=== PATIENT | female | born 1960 | race Caucasian/White ===

== ENCOUNTER 2021-02-16 05:42 | Inpatient (IN) | payer MEDICARE, MEDICAID ==
[~2021-02-16 05:42] MED LIST: Lactated Ringers 1,000 ML IV ONE
[2021-02-16] MEDS ORDERED: Cyanocobalamin (Vitamin B12) 1,000 MCG/ML SDV IM ONE (06:30)
[2021-02-16] MEDS ORDERED: MVI, Adult with Vitamin K 10 ML, Thiamine 200 MG, Chromium/Copper/Mang/Selen/Zn 1 ML in... IV ONE ×4 (07:15)
[2021-02-16] MEDS ORDERED: Glycopyrrolate 0.2 MG/ML 2 ML SDV IVPUSH ONE (07:15)
[2021-02-16] MEDS ORDERED: Potassium Chloride 20 MEQ in Premix Bag 1 BAG IV ONE (07:30)
[2021-02-16] MEDS ORDERED: Propofol 200 MG/20 ML SDV ONE (09:44)
[2021-02-16] MEDS ORDERED: fentaNYL 100 MCG/2 ML SDV ONE (09:44)
[2021-02-16] MEDS ORDERED: Sodium Chloride 0.9% 500 ML ONE (09:48)
[2021-02-16] MEDS ORDERED: Metoclopramide 10 MG/2 ML SDV IVPUSH PRN (11:24)
[2021-02-16] MEDS: Potassium Phos in 0.9 % NaCl 15 MMOL in Premix Bag 1 BAG IV SCH ×6 (13:07→20:19)
[2021-02-16] MEDS: Ondansetron 4 MG/2 ML SDV IVPUSH PRN (17:31)
[2021-02-16] MEDS: traMADol 50 MG Tab PO PRN (20:27)
[2021-02-16] MEDS: Temazepam 15 MG Cap PO PRN (20:53)
[2021-02-16] MEDS ORDERED: Atenolol 25 MG Tab PO SCH (21:00)
[2021-02-16] MEDS ORDERED: Sodium Chloride 0.9% 500 ML IV ONE (22:15)
[2021-02-16] MEDS: Potassium Chloride 20 MEQ in Premix Bag 1 BAG IV SCH (23:21)
[2021-02-17] MEDS: Potassium Chloride 20 MEQ in Premix Bag 1 BAG IV SCH (01:33)
[2021-02-17] MEDS: Temazepam 15 MG Cap PO PRN ×2 (01:33→21:11)
[2021-02-17] MEDS: Dextrose 5%-Lactated Ringers 1,000 ML IV SCH ×2 (02:48→10:17)
[2021-02-17] MEDS ORDERED: Atenolol 25 MG Tab PO ONE (06:30)
[2021-02-17] MEDS ORDERED: Bupivacaine 0.5% 50 ML MDV ONE (06:44)
[2021-02-17] MEDS ORDERED: Lidocaine 1% with EPINEPHrine 1:100,000 50 ML MDV ONE (06:44)
[2021-02-17] MEDS ORDERED: Propofol 200 MG/20 ML SDV ONE (07:13)
[2021-02-17] MEDS ORDERED: Midazolam 1 MG/ML 2 ML SDV ONE (07:13)
[2021-02-17] MEDS ORDERED: fentaNYL 100 MCG/2 ML SDV ONE (07:13)
[2021-02-17] MEDS ORDERED: Lidocaine 1% 2 ML ONE (07:38)
[2021-02-17] MEDS ORDERED: ceFAZolin 2 GM in Premix Bag 1 BAG IV ONE (08:00)
[2021-02-17] MEDS ORDERED: Furosemide 20 MG/2 ML VIAL IV ONE (10:00)
[2021-02-17] MEDS ORDERED: MANGANESE IV SCH ×2 (12:00)
[2021-02-17] MEDS ORDERED: [UNRECOGNIZED DRUG - OTHER] IV SCH ×2 (12:00)
[2021-02-17] MEDS ORDERED: ZINC IV SCH ×2 (12:00)
[2021-02-17] MEDS ORDERED: LYTES IV SCH ×2 (12:00)
[2021-02-17] MEDS ORDERED: COPPER IV SCH ×2 (12:00)
[2021-02-17] MEDS ORDERED: CALCIUM IV SCH ×2 (12:00)
[2021-02-17] MEDS ORDERED: Dextrose 5%-Lactated Ringers 1,000 ML IV SCH (12:00)
[2021-02-17] MEDS: LYTES IV SCH ×6 (12:20→23:16)
[2021-02-17] MEDS: CALCIUM IV SCH ×6 (12:20→23:16)
[2021-02-17] MEDS: ZINC IV SCH ×6 (12:20→23:16)
[2021-02-17] MEDS: MANGANESE IV SCH ×6 (12:20→23:16)
[2021-02-17] MEDS: [UNRECOGNIZED DRUG - OTHER] IV SCH ×6 (12:20→23:16)
[2021-02-17] MEDS: COPPER IV SCH ×6 (12:20→23:16)
[2021-02-17] MEDS: SELENIUM IV SCH ×6 (12:20→23:16)
[2021-02-17] MEDS: MVI IV SCH ×6 (12:20→23:16)
[2021-02-17] MEDS: Acetaminophen 325 MG Tab PO PRN (15:15)
[2021-02-17] MEDS: Fat Emulsion 100 ML IV SCH (15:48)
[2021-02-17] MEDS: Atenolol 25 MG Tab PO SCH (21:10)
[2021-02-17] MEDS: traMADol 50 MG Tab PO PRN (21:11)
[2021-02-18] MEDS: traMADol 50 MG Tab PO PRN ×4 (03:07→21:00)
[2021-02-18] MEDS: MANGANESE IV SCH ×6 (08:35→18:40)
[2021-02-18] MEDS: [UNRECOGNIZED DRUG - OTHER] IV SCH ×6 (08:35→18:40)
[2021-02-18] MEDS: LYTES IV SCH ×6 (08:35→18:40)
[2021-02-18] MEDS: Furosemide 20 MG/2 ML VIAL IV SCH ×2 (08:35→20:50)
[2021-02-18] MEDS: ZINC IV SCH ×6 (08:35→18:40)
[2021-02-18] MEDS: SELENIUM IV SCH ×6 (08:35→18:40)
[2021-02-18] MEDS: COPPER IV SCH ×6 (08:35→18:40)
[2021-02-18] MEDS: MVI IV SCH ×6 (08:35→18:40)
[2021-02-18] MEDS: CALCIUM IV SCH ×6 (08:35→18:40)
[2021-02-18] MEDS: Magnesium Sulfate/Water 2 GM in Premix Bag 1 BAG IV SCH ×3 (08:59→20:57)
[2021-02-18] MEDS ORDERED: Furosemide 20 MG/2 ML VIAL IV SCH (09:00)
[2021-02-18] MEDS: Atenolol 25 MG Tab PO SCH ×2 (09:01→20:57)
[2021-02-18] MEDS ORDERED: Potassium Phosphates 25 MMOLE in Sodium Chloride 0.9% 100 ML IV ONE ×4 (11:00)
--- NOTE | 2021-02-18 14:55 | PN ---
DATE OF SERVICE: 02/17/2021 The patient has been afebrile with stable vital signs. She had a small amount of oral intake overnight without difficulty. Her labs are showing correction of the potassium up to 3.5, magnesium is somewhat low, so we supplemented. Otherwise, she will be getting a Puckett catheter placed today and we will begin some TPN. We will proceed with some nutritional replenishment through the weekend, and on Friday, Friday being a holiday, we will proceed with exploratory laparotomy try to sort out what might be going on in terms of her chronic nausea and vomiting and diarrhea and replace a gastrostomy tube at that point as well. The Puckett catheter will be placed later this morning. Juve Alvarez MD /[id number]
[2021-02-18] MEDS: Fat Emulsion 100 ML IV SCH (16:42)
[2021-02-18] MEDS: Temazepam 15 MG Cap PO PRN (21:00)
[2021-02-19] MEDS: Acetaminophen 325 MG Tab PO PRN ×2 (01:46→13:46)
[2021-02-19] MEDS: Magnesium Sulfate/Water 2 GM in Premix Bag 1 BAG IV SCH ×4 (02:41→20:43)
[2021-02-19] MEDS: MVI IV SCH ×3 (04:24)
[2021-02-19] MEDS: ZINC IV SCH ×3 (04:24)
[2021-02-19] MEDS: LYTES IV SCH ×3 (04:24)
[2021-02-19] MEDS: MANGANESE IV SCH ×3 (04:24)
[2021-02-19] MEDS: COPPER IV SCH ×3 (04:24)
[2021-02-19] MEDS: SELENIUM IV SCH ×3 (04:24)
[2021-02-19] MEDS: [UNRECOGNIZED DRUG - OTHER] IV SCH ×3 (04:24)
[2021-02-19] MEDS: CALCIUM IV SCH ×3 (04:24)
[2021-02-19] MEDS ORDERED: Potassium Phosphates 25 MMOLE in Sodium Chloride 0.9% 100 ML IV ONE (09:00)
[2021-02-19] MEDS: Furosemide 20 MG/2 ML VIAL IV SCH ×2 (09:06→20:43)
[2021-02-19] MEDS: Atenolol 25 MG Tab PO SCH ×2 (09:12→20:42)
[2021-02-19] MEDS: traMADol 50 MG Tab PO PRN ×2 (09:20→20:41)
--- NOTE | 2021-02-19 13:22 | PN ---
DATE OF SERVICE: 02/19/2021 The patient has been afebrile with stable vital signs. She complains of some heartburn, but denies any nausea, or vomiting. She had almost 7 L of urine output yesterday with net diuresis of 4878 recorded. Her oral intake is seemingly going okay, but she does complain of some heartburn. Labs show involving contraction alkalosis related to her diuresis, and we will adjust her TPN accordingly. Otherwise, the plan will be proceed with exploratory laparotomy tomorrow to try to identify any small bowel adhesions or partial obstruction sites, adjust dose accordingly, and then place a gastrostomy tube as a backup for nutritional status. The potential risks of the procedure were reviewed, and the patient wishes to proceed. Juve Alvarez MD /[id number]
--- NOTE | 2021-02-19 13:31 | PN ---
DATE OF SERVICE: 02/18/2021 The patient has been afebrile with stable vital signs. Oral intake has been reasonable without any nausea or vomiting other than she is complaining of more heartburn today after eating some yesterday. However, the patient tolerated TPN. She did have a net diuresis of around 1280 mL yesterday with the diuresis, but with that, her BNP is still somewhat higher. We will give b.i.d. today and recheck some labs in the morning. In anticipation of some loss of potassium and phosphate, we will give her some K-Phos IV today as well. Otherwise, we will plan to proceed with surgical intervention on Friday. Juve Alvarez MD /[id number]
[2021-02-19] MEDS: 1: Amino Acids 5%/Dextrose 15% 1,000 ML with MVI, Adult with Vitamin K 10 ML, Zinc/Copp IV SCH ×3 (14:22)
[2021-02-19] MEDS ORDERED: Potassium Phosphates 20 MMOLE in Sodium Chloride 0.9% 100 ML IV ONE (15:00)
[2021-02-19] MEDS: Fat Emulsion 100 ML IV SCH (16:19)
[2021-02-19] MEDS: Temazepam 15 MG Cap PO PRN (20:41)
[2021-02-20] MEDS: 1: Amino Acids 5%/Dextrose 15% 1,000 ML with MVI, Adult with Vitamin K 10 ML, Zinc/Copp IV SCH ×3 (00:27)
[2021-02-20] MEDS: Magnesium Sulfate/Water 2 GM in Premix Bag 1 BAG IV SCH (03:05)
[2021-02-20] MEDS ORDERED: Bupivacaine 0.5% 50 ML MDV ONE (06:50)
[2021-02-20] MEDS ORDERED: Lidocaine 1% with EPINEPHrine 1:100,000 50 ML MDV ONE (06:50)
[2021-02-20] MEDS ORDERED: Meropenem 500 MG SDV ONE (06:50)
[2021-02-20] MEDS ORDERED: Glycopyrrolate 0.2 MG/ML 5 ML MDV ONE (06:55)
[2021-02-20] MEDS ORDERED: Rocuronium 50 MG/5 ML Vial ONE (06:55)
[2021-02-20] MEDS ORDERED: Propofol 200 MG/20 ML SDV ONE (06:55)
[2021-02-20] MEDS ORDERED: Succinylcholine 200 MG/10 ML MDV ONE (06:55)
[2021-02-20] MEDS ORDERED: Dexamethasone 4 MG/ML SDV ONE (06:55)
[2021-02-20] MEDS ORDERED: Neostigmine Methylsulfate 1 MG/ML 5 ML Syringe ONE (06:55)
[2021-02-20] MEDS ORDERED: Ondansetron 4 MG/2 ML SDV ONE (06:55)
[2021-02-20] MEDS ORDERED: fentaNYL 250 MCG/5 ML SDV ONE ×2 (06:57→09:38)
[2021-02-20] MEDS ORDERED: Atenolol 25 MG Tab PO ONE (07:00)
[2021-02-20] MEDS: Furosemide 20 MG/2 ML VIAL IV SCH (08:18)
[2021-02-20] MEDS ORDERED: Ketamine 500 MG/5 ML MDV IV SCH (09:00)
[2021-02-20] MEDS ORDERED: Magnesium Sulfate 2.7 GM in Sodium Chloride 0.9% 100 ML IV SCH (09:00)
[2021-02-20] MEDS ORDERED: cefOXitin 2 GM in Sodium Chloride 0.9% 50 ML IV ONE (09:00)
[2021-02-20] MEDS ORDERED: Ketamine 50 MG in Sodium Chloride 0.9% 49.5 ML IV SCH (09:00)
[2021-02-20] MEDS ORDERED: Magnesium Sulfate 2.8 GM in Sodium Chloride 0.9% 250 ML IV ONE (09:30)
[2021-02-20] MEDS ORDERED: Lidocaine 1% with EPINEPHrine 1:100,000 50 ML MDV INJECT ONE (09:40)
[2021-02-20] MEDS ORDERED: Bupivacaine 0.5% 50 ML MDV INJECT ONE (09:40)
[2021-02-20] MEDS ORDERED: Meropenem 500 MG SDV IRR ONE (09:45)
[2021-02-20] MEDS ORDERED: hydrOXYzine HCL 100 MG/2 ML SDV IM ONE (10:45)
[2021-02-20] MEDS ORDERED: fentaNYL 100 MCG/2 ML SDV IVPUSH ONE (10:46)
[2021-02-20] MEDS ORDERED: Naloxone 0.4 MG/ML SDV IVPUSH PRN (11:04)
[2021-02-20] MEDS ORDERED: diphenhydrAMINE 50 MG/ML SDV IVPUSH PRN ×2 (11:04→13:00)
[2021-02-20] MEDS ORDERED: diphenhydrAMINE 25 MG Cap PO PRN (11:04)
[2021-02-20] MEDS ORDERED: Ondansetron 4 MG/2 ML SDV IVPUSH PRN (11:04)
[2021-02-20] MEDS ORDERED: Naloxone 0.4 MG/ML SDV IV PRN (12:00)
[2021-02-20] MEDS: HYDROmorphone/Normal Saline 15 MG/30 ML PCA IV PRN (12:19)
[2021-02-20] MEDS ORDERED: [UNRECOGNIZED DRUG - OTHER] IV ONE ×3 (12:30)
[2021-02-20] MEDS ORDERED: MVI IV ONE ×3 (12:30)
[2021-02-20] MEDS ORDERED: 1: Amino Acids 5%/Dextrose 15% 1,000 ML with MVI, Adult with Vitamin K 10 ML, Zinc/Copp IV SCH ×3 (12:30)
[2021-02-20] MEDS ORDERED: ZINC IV ONE ×3 (12:30)
[2021-02-20] MEDS ORDERED: VITAMIN K IV ONE ×3 (12:30)
[2021-02-20] MEDS ORDERED: COPPER IV ONE ×3 (12:30)
[2021-02-20] MEDS ORDERED: MANGANESE IV ONE ×3 (12:30)
[2021-02-20] MEDS ORDERED: SELENIUM IV ONE ×3 (12:30)
[2021-02-20] MEDS ORDERED: Calcium Gluconate 10% 1 GM/10 ML SDV IVPUSH PRN (13:00)
[2021-02-20] MEDS ORDERED: Acetaminophen 500 MG Tab PO PRN (13:00)
[2021-02-20] MEDS ORDERED: Metoclopramide 10 MG/2 ML SDV IVPUSH PRN (13:00)
[2021-02-20] MEDS ORDERED: Albuterol/Ipratropium 3.0-0.5 MG/3 ML Neb Soln INH PRN (13:00)
[2021-02-20] MEDS ORDERED: hydrOXYzine HCL 100 MG/2 ML SDV IM PRN (13:00)
[2021-02-20] MEDS ORDERED: Labetalol 20 MG/4 ML Syringe IVPUSH PRN (13:00)
[2021-02-20] MEDS: Dextrose 5%-Lactated Ringers 1,000 ML IV SCH (13:24)
[2021-02-20] MEDS: cefOXitin 2 GM in Sodium Chloride 0.9% 50 ML IV SCH ×2 (13:28→20:16)
[2021-02-20] MEDS: Pantoprazole 40 MG Vial IVPUSH SCH (13:34)
[2021-02-20] MEDS: Acetaminophen 500 MG Tab PO SCH ×2 (13:36→22:47)
--- NOTE | 2021-02-20 18:31 | PCM.EKG ---
#1 Interpretation EKG Date: 02/19/21 Time: 12:12 Rhythm: NSR Rate (Beats/Min): 68 Enochs: Normal P-Wave: Present QRS: Normal ST-T: Normal QT: Normal WA/PQ Interval: normal Comparison: No Change (compared to 08/02/13)
[2021-02-20] MEDS: Atenolol 25 MG Tab PO SCH (20:15)
[2021-02-21] MEDS ORDERED: Iopamidol 612 MG/ML 50 ML SDV PO STA (02:04)
[2021-02-21] MEDS: cefOXitin 2 GM in Sodium Chloride 0.9% 50 ML IV SCH ×3 (02:07→14:38)
[2021-02-21] MEDS: Acetaminophen 500 MG Tab PO SCH ×3 (05:33→21:29)
[2021-02-21] MEDS: Docusate Sodium 100 MG Cap PO SCH ×3 (08:32→21:26)
[2021-02-21] MEDS: Bisacodyl 5 MG Tab PO SCH ×2 (08:32→21:00)
[2021-02-21] MEDS: Atenolol 25 MG Tab PO SCH ×2 (08:33→21:27)
[2021-02-21] MEDS ORDERED: 1: Amino Acids 5%/Dextrose 15% 1,000 ML with MVI, Adult with Vitamin K 10 ML, Zinc/Copp IV SCH ×6 (08:37→09:00)
[2021-02-21] MEDS ORDERED: Furosemide 20 MG/2 ML VIAL IVPUSH ONE (09:00)
[2021-02-21] MEDS ORDERED: Loperamide 1 MG/7.5 ML 7.5 ML UD Cup FTUBE PRN (09:21)
--- NOTE | 2021-02-21 10:05 | CRLCR ---
For Patients: As a result of the Century Cures Act, medical imaging exams and procedure reports are released immediately into your electronic medical record. You may view this report before your referring provider. If you have questions, please contact your health care provider. INDICATION: Perioperative surgery. Assess for G-tube placement. Impression : Three images. Initial image shows no contrast and nonobstructive bowel gas pattern. Subsequent images show contrast in the distal esophagus and Marshal loop of the bypass. No dilatation. Final image shows some disruption of the contrast column with some contrast still only esophagus and grouped and contrast in nondilated jejunum in the left lower quadrant. Skin gely in the midline. Presumed vascular calcifications right upper quadrant. Dictated by Kwaku Rivera MD @ 02/21/2021 10:02:59 AM (Electronically Signed)
[2021-02-21] MEDS: Vitamin A 10,000 Unit Cap PO SCH ×2 (12:23→16:21)
[2021-02-21] MEDS: HYDROmorphone/Normal Saline 15 MG/30 ML PCA IV PRN (14:32)
[2021-02-21] MEDS: Pantoprazole 40 MG Vial IVPUSH SCH (14:38)
[2021-02-21] MEDS: Dextrose 5%-Lactated Ringers 1,000 ML IV SCH (14:44)
--- NOTE | 2021-02-21 15:05 | PN ---
DATE OF SERVICE: 02/20/2021 The patient is having moderate amount of oral intake, but around 1300 mL a day, and she says with it she did develop some nausea and crampy abdominal pain. Had some loose bowel movements. Given this, we will proceed with surgery as planned with examination of the small bowel and probable revision of this to a more proximal jejunojejunostomy to minimize problems with diarrhea and revise any areas that need revision and/or lysis of adhesions probably along with placement of the gastrostomy tube. Juve Alvarez MD /[id number]
--- NOTE | 2021-02-21 15:05 | PN ---
DATE OF SERVICE: 02/21/2021 The patient has been afebrile with stable vital signs. Upper GI x-ray looks good and we will begin a step-2 diet today. Otherwise, we will also start the tube feeding today. We will initially start these with a continuous regimen per dietary recommendation and then in a day or 2 try to switch over to more of a bolus regimen. Actually, I think she will probably need something like 2 or 3 cans of tube feeding daily as a bolus in addition to her oral intake she will be taking in. Her magnesium is quite low today. We will supplement that. Apparently, oral magnesium in the past caused some nausea and vomiting, but she has tolerated that during this hospitalization without difficulties thus far. Otherwise, her vitamin A levels are quite low and we will ask pharmacy to see what the options for vitamin A replacement are, if there are injections available we will certainly begin those, otherwise,we will continue high-dose oral regimen. We will back down the TPN rate 40 mL now given the oral intake as well as the tube feedings and give her 1 dose bump up a little bit overnight. Juve Alvarez MD /[id number]
[2021-02-21] MEDS: Temazepam 15 MG Cap PO PRN (21:26)
[2021-02-22] MEDS: Acetaminophen 500 MG Tab PO SCH ×4 (05:18→21:42)
[2021-02-22] MEDS: Vitamin A 10,000 Unit Cap PO SCH ×3 (07:58→17:11)
[2021-02-22] MEDS ORDERED: Magnesium Hydroxide 400 MG/5 ML Susp 30 ML Cup PO ONE (08:00)
[2021-02-22] MEDS ORDERED: Furosemide 20 MG/2 ML VIAL IV ONE (08:00)
--- NOTE | 2021-02-22 08:42 | PN ---
DATE OF SERVICE: 02/22/2021 The patient is status post a Puckett catheter insertion on 02/17/2021 and then subsequently on 02/20 exploratory laparotomy with revision of jejunojejunostomy, component of Marshal-en-Y gastric bypass, excision of a peritoneal implant, repair of incarcerated incisional hernia, placement of tube gastrostomy, and placement of Interceed mesh. Oral intake thus far has been running around a liter a day and she has been receiving tube feedings, especially 2 mL an hour. Has also been receiving TPN, which we will stop today. The plan is to get the patient started for nighttime tube feeding regimen to supplement oral intake. This will be required as the patient is unable to maintain adequate oral intake and has had significant amount of malabsorption related to the gastric bypass and the tube feeding as anticipated will be required for an excess of 90 days. Physical Therapy will be seeing the patient daily. Among her labs, her vitamin A level was extremely low rate around 5, and she is being supplemented with 100,000 units of oral vitamin A daily, and she will probably need to go home on that regimen for a period of time. The tentative plan is to discharge home on Friday with mobile home installer with the tube feedings. This was depending on the adequate performance status. Over the weekend, she has had some tendency to have a little bit of fluid overload picture and has been receiving daily Lasix. We will do that again today and check some labs and BMP again tomorrow. Otherwise, continue bowel stimulation. We will give her some additional milk of magnesia today and a step 3 gastric bypass diet. Juve Alvarez MD /[id number]
[2021-02-22] MEDS ORDERED: Cyanocobalamin (Vitamin B12) 1,000 MCG/ML SDV IM ONE (09:00)
[2021-02-22] MEDS: Docusate Sodium 100 MG Cap PO SCH ×2 (09:02→20:12)
[2021-02-22] MEDS: Bisacodyl 5 MG Tab PO SCH ×2 (09:02→20:12)
[2021-02-22] MEDS: Atenolol 25 MG Tab PO SCH ×2 (09:03→20:12)
[2021-02-22] MEDS: Cyclobenzaprine 10 MG Tab PO PRN (12:51)
[2021-02-22] MEDS: HYDROmorphone/Normal Saline 15 MG/30 ML PCA IV PRN (15:11)
[2021-02-22] MEDS: Pantoprazole 40 MG Delayed-Release Granules 1 Packet PO SCH (16:55)
[2021-02-22] MEDS: Temazepam 15 MG Cap PO PRN (20:12)
[2021-02-23] MEDS: Acetaminophen 500 MG Tab PO SCH ×3 (06:02→22:05)
[2021-02-23] MEDS: Dextrose 5%-Lactated Ringers 1,000 ML IV SCH (07:31)
[2021-02-23] MEDS: Docusate Sodium 100 MG Cap PO SCH ×2 (09:54→21:57)
[2021-02-23] MEDS: Atenolol 25 MG Tab PO SCH ×2 (09:55→22:05)
[2021-02-23] MEDS: Furosemide 20 MG/2 ML VIAL IVPUSH SCH ×2 (09:56→22:04)
[2021-02-23] MEDS: Vitamin A 10,000 Unit Cap PO SCH ×3 (09:56→17:46)
[2021-02-23] MEDS: HYDROmorphone/Normal Saline 15 MG/30 ML PCA IV PRN (11:24)
[2021-02-23] MEDS: Ondansetron 4 MG/2 ML SDV IVPUSH PRN ×2 (12:46→20:06)
--- NOTE | 2021-02-23 13:19 | PN ---
DATE OF SERVICE: 02/23/2021 SUBJECTIVE: Carissa tolerated her G-tube feedings last night and she did get up to the 99 mL per hour. It currently is off right now and she will be starting her nighttime 12-hour feeding. Her BNP did increase to 2470. She has been voiding without difficulty. She did have 2 bowel movements. Oral intake was 1015, output 1100. Labs today; potassium 4.9, and BNP was 2470. Remainder of review of systems negative for any pertinent positives and negatives. OBJECTIVE: GENERAL: Carissa King is a pleasant 60-year-old female. She is alert and orientated. VITAL SIGNS: TPR is 96.9, 66, 16. Blood pressure 120/61. HEENT: Negative. NECK: Supple. HEART: Regular rate and rhythm. LUNGS: Clear. ABDOMEN: Dressing dry and intact. Abdominal binder is on. EXTREMITIES: Without peripheral edema. ASSESSMENT: 1. Exploratory laparotomy with: a. Revision of the jejunojejunostomy component of the Marshal-en-Y gastric bypass. b. Excision of peritoneal implant. c. Repair of incarcerated incisional hernia. d. Placement of tube gastrostomy. e. Placement of Interceed mesh. POSTOP DIAGNOSES: 1. Partial small bowel obstruction at the jejunojejunostomy. 2. Peritoneal implants, small bowel mesenteric. 3. Incarcerated incisional hernia. 4. Malnutrition. Date of procedure: 02/20/2021. Surgeon: Juve Alvarez MD. PLAN: 1. Lasix 20 mg IV b.i.d. 2. Discontinue Dulcolax tabs. 3. May shower. 4. Start gastrostomy tube feedings per order, 12 hours, starting tonight. 5. Check CBC, CMP, mag, phos in a.m. 6. Continue use of incentive spirometer. 7. We will evaluate p.r.n. or in a.m. Deborah Osorio PA-C /[id number]
[2021-02-23] MEDS: Pantoprazole 40 MG Delayed-Release Granules 1 Packet PO SCH (17:45)
[2021-02-23] MEDS: Cyclobenzaprine 10 MG Tab PO PRN (20:06)
[2021-02-24] MEDS: Ondansetron 4 MG/2 ML SDV IVPUSH PRN (00:06)
[2021-02-24] MEDS: Temazepam 15 MG Cap PO PRN (00:06)
[2021-02-24] MEDS ORDERED: Scopolamine 1.5 MG Transdermal Patch TRDERM ONE (01:42)
[2021-02-24] MEDS: LORazepam 2 MG/ML SDV IVPUSH PRN ×2 (01:57→04:12)
[2021-02-24] MEDS ORDERED: Sodium Chloride 0.9% 75 ML IV ONE (04:23)
[2021-02-24] MEDS ORDERED: Sodium Chloride 0.9% 10 ML Syringe FLUSH PRN (04:23)
[2021-02-24] MEDS ORDERED: Iopamidol 612 MG/ML 100 ML Bottle IV PRN (04:23)
[2021-02-24] MEDS ORDERED: Iopamidol 612 MG/ML 100 ML Bottle IV ONE (05:00)
[2021-02-24] MEDS ORDERED: Lactated Ringers 500 ML IV SCH (05:15)
[2021-02-24] MEDS ORDERED: Piperacillin/Tazobactam 4.5 GM in Sodium Chloride 0.9% 100 ML IV ONE (05:18)
[2021-02-24] MEDS ORDERED: Piperacillin/Tazobactam 4.5 GM Vial ONE (05:18)
[2021-02-24] MEDS ORDERED: LORazepam 2 MG/ML SDV IVPUSH STA (05:27)
[2021-02-24] MEDS ORDERED: Glycopyrrolate 0.2 MG/ML 5 ML MDV ONE (05:37)
[2021-02-24] MEDS ORDERED: Rocuronium 50 MG/5 ML Vial ONE (05:37)
[2021-02-24] MEDS ORDERED: Neostigmine Methylsulfate 1 MG/ML 5 ML Syringe ONE (05:37)
[2021-02-24] MEDS ORDERED: Propofol 200 MG/20 ML SDV ONE (05:37)
[2021-02-24] MEDS ORDERED: Succinylcholine 200 MG/10 ML MDV ONE (05:37)
[2021-02-24] MEDS ORDERED: fentaNYL 250 MCG/5 ML SDV ONE (05:37)
[2021-02-24] MEDS ORDERED: Dexamethasone 4 MG/ML SDV ONE (05:37)
[2021-02-24] MEDS ORDERED: Ondansetron 4 MG/2 ML SDV ONE (05:37)
[2021-02-24] MEDS ORDERED: Sodium Chloride 0.9% 20 ML ONE (05:40)
[2021-02-24] MEDS ORDERED: ePHEDrine 50 MG/ML SDV ONE ×2 (05:40→06:54)
[2021-02-24] MEDS ORDERED: Phenylephrine 1% 10 MG/ML SDV ONE ×2 (05:40→07:10)
[2021-02-24] MEDS ORDERED: Bupivacaine 0.5%/EPINEPHrine 1:200,000 50 ML MDV ONE (05:42)
--- NOTE | 2021-02-24 06:00 | CRLCT ---
For Patients: As a result of the 21st Century Cures Act, medical imaging exams and procedure reports are released immediately into your electronic medical record. You may view this report before your referring provider. If you have questions, please contact your health care provider. INDICATION: Abdominal pain with nausea and vomiting. COMPARISON: Three views of the abdomen with administration oral contrast from 02/21/2021. TECHNIQUE: CT examination of the chest, abdomen, and pelvis was performed without contrast enhancement using 3 mm thick axial sections from above the apices of the lungs through the symphysis pubis. Oral contrast was not administered. Please note that all CT scans at this facility use dose modulation, iterative reconstruction, and/or weight-based dosing when appropriate to reduce radiation dose to as low as reasonably achievable. FINDINGS: : In the chest, there is moderate linear atelectasis in the posterior left lower lobe adjacent to mild elevation of the left hemidiaphragm from eventration. Moderate linear atelectasis is seen in the posterior right lung base adjacent to the hemidiaphragm. There is a left subclavian central line with its tip in the superior vena cava at the cavoatrial junction. There is no sign of mediastinal or hilar mass or adenopathy. Sensitivity is limited by the absence of contrast enhancement. There is minimal LAD coronary calcification. The heart is otherwise normal in appearance. There is age appropriate appearance of the thoracic aorta and ascending great vessels. There is no sign of supraclavicular or axillary mass or adenopathy. There is a 1.6 centimeter low-density region in the interpolar right lobe of the thyroid, a possible cyst or mass. This can be further evaluated with ultrasound on a nonemergent basis. The left lobe of the thyroid is small but is otherwise normal in appearance. There is massive free intra-abdominal air, new compared to the previous abdominal films. During the interval, a gastrostomy tube has been placed with its tip in satisfactory position in the body of the stomach. It is possible that the massive amounts of free air is the result of G-tube placement, but I am more concerned for bowel perforation. There is a mild amount of free fluid in the all gutters, right greater than left. There is new prominent distention of the small bowel with moderate distention of the colon extending to the descending colon. The findings suggest an ileus. There is residual oral contrast in the colon extending from the cecum through the rectum. There is prominent pneumatosis of the proximal small bowel. In the abdomen, the unenhanced liver has prominent portal venous air, with a large amount of air seen in the main portal vein and small amounts of air seen in the splenic vein. The spleen, pancreas, and right adrenal are normal in appearance. There is a nodule with fatty density arising from the left adrenal gland measuring 3.6 x 3.8 centimeters, findings branch customer service representative of an adrenal myelolipoma. A 2nd left adrenal nodule is seen with intermediate density medially but with fatty density laterally, consistent with an additional myelolipoma, measuring 2.8 x 3.4 centimeters. The right kidney is absent with surgical clips in the renal fossa from nephrectomy. The left kidney is normal in appearance. Clips are seen in the gall bladder fossa from cholecystectomy. There is no sign of biliary ductal dilatation. The abdominal aorta is normal in caliber with no sign of dilatation. There is no sign of retroperitoneal mass or adenopathy. There are changes of Marshal-en-Y anastomosis with moderate distention of the gastric body and fundus with gas and fluid. There is a small periumbilical hernia containing free intra-abdominal air and a small amount of peritoneal fat. There is no sign of any associated small bowel obstruction. In the pelvis, the appendix is nonvisualized, but there is no sign of an inflammatory process in the area of the appendix. The loops of small bowel and colon in the pelvis are normal in appearance. The uterus is absent and the adnexal regions are normal in appearance. The urinary bladder is normal in appearance. There is no sign of pelvic or inguinal mass or adenopathy. The osseous structures are normal in appearance for the patient`s age. I discussed the findings with TRENTON Osorio at 0555 hours on 02/24/2021. IMPRESSION: CT of the abdomen and pelvis shows new massive free intra-abdominal air. There is prominent pneumatosis of the prominently distended proximal small bowel and there is prominent portal venous gas. There is a mild amount of free fluid in the pericolic gutters, right greater than left. New prominent dilatation of the small bowel with new moderate dilatation of the right colon, most consistent with an ileus. Satisfactory positioning of a newly placed gastrostomy tube. The gastric body and fundus is moderately distended with fluid as part of the ileus. CT of the abdomen shows changes of cholecystectomy with no sign of biliary ductal dilatation. Two left-sided adrenal myelolipomas requiring no further follow-up. 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 CT of the pelvis shows changes of hysterectomy. Small umbilical hernia containing air and peritoneal fat. CT of the chest shows moderate left greater than right posterior basilar linear atelectasis. Please note that all CT scans at this facility use dose modulation, iterative reconstruction, and/or weight-based dosing when appropriate to reduce radiation dose to as low as reasonably achievable. Dictated by Nicholas Bacon MD @ 02/24/2021 5:59:04 AM (Electronically Signed)
[2021-02-24] MEDS ORDERED: Bupivacaine 0.5%/EPINEPHrine 1:200,000 50 ML MDV INJECT ONE (06:36)
[2021-02-24] MEDS ORDERED: Lactated Ringers 1,000 ML ONE (06:38)
[2021-02-24] MEDS ORDERED: Sodium Chloride 0.9% 10 ML ONE ×2 (06:40→06:54)
[2021-02-24] MEDS ORDERED: Meropenem 500 MG SDV ONE (06:40)
[2021-02-24] MEDS ORDERED: Meropenem 500 MG SDV IRR ONE (06:43)
[2021-02-24] MEDS ORDERED: Benzocaine/Cetylpyridinium/Menthol Lozenge MUCMEM PRN (07:38)
[2021-02-24] MEDS ORDERED: Naloxone 0.4 MG/ML SDV IVPUSH PRN (07:38)
[2021-02-24] MEDS ORDERED: Promethazine 25 MG/ML SDV IM PRN (07:38)
[2021-02-24] MEDS ORDERED: Heparin Sodium 5,000 Units/ML Vial ONE (07:39)
[2021-02-24] MEDS ORDERED: fentaNYL/Normal Saline 600 MCG/30 ML PCA Vial IV SCH (07:45)
[2021-02-24] MEDS ORDERED: Sodium Chloride 0.9% 1,000 ML IV SCH ×2 (07:45→10:15)
--- NOTE | 2021-02-24 08:16 | PN ---
DATE OF SERVICE: 02/24/2021 SUBJECTIVE: Carissa was getting her gastrostomy tube feedings, which started around 7 p.m. Pain up until that time had been controlled with GREY WASHER. She had been up, ambulating. Oral 750, G-tube 345. Urine output 625. She was reported to evening/night nurse that she was nauseated. The tube feeding was running at 99 mL per hour. She started developing nausea and increase in pain. Nursing staff called around 0400 reporting that Carissa was extremely nauseated on their shift and she was given Zofran. Tube feeding was stopped for about 30 minutes, then restarted after the patient was feeling better. Nausea did increase and the patient started vomiting. Reglan was given at 2204. Tube feedings were stopped completely. Nausea decreased. Then, around midnight, started having nausea and vomiting again, was given Zofran and she had minimal relief. Another phone call requesting an order for Ativan in addition to the Zofran. The patient continues to report increased pain and did have a bloody emesis. The ER doctor was in the room and examined the patient at 04:40. A CT scan had been ordered prior to him seeing her along with labs. When I arrived at the hospital, Carissa was very anxious, having a lot of pain, respirations were 20 to 24, pulse rate ranged as high as 130. She was conscious. Breathing was labored. Color pale. Skin was moist and cool. CT scan was obtained, and Dr. Be Watt, was called in regard to condition. OR staff was called. CT scan of abdomen and pelvis showing new massive free intraabdominal air with prominent pneumatosis with distended proximal small bowel and prominent portal venous gas. There is mild amount of free fluid in the paracolic gutters, right greater than left. There was a new dilatation of small bowel and moderate dilation of the right colon consistent of an ileus. There was satisfactory positioning of newly placed gastrostomy tube. The gastric body and fundus are moderately distended with fluid. Results resembled what could be a bowel perforation. OBJECTIVE: GENERAL: Carissa King is a pleasant 60-year-old female. She has been having emesis, nursing staff stated of what looked like her formula that was going into the gastrostomy tube. Carissa is pale. VITAL SIGNS: TPR 97.7, 80, 18, blood pressure 117/62. O2 was 80% without O2 and with O2 pulse ox was 95%. SKIN: Cool, moist. HEENT: Negative. HEART: Regular rate and rhythm. LUNGS: She was starting to gurgle in the upper airway. Decreased breath sounds in bases. ABDOMEN: Distended. Bowel sounds are heard, but it is firm and tender. EXTREMITIES: Leg cramping and states she is unable to hold them still. PSYCHIATRIC: Anxiety exhibited by moving legs, arms, and persistently wanting to get up and not leaving the oxygen on. ASSESSMENT: 1. Acute bowel perforation. 2. Right colon ileus. 3. Exploratory laparotomy with: a. Revision of the jejunojejunostomy component of the Marshal-en-Y gastric bypass. b. Excision of peritoneal implants. c. Repair of incarcerated incisional hernia. d. Placement of tube gastrostomy. e. Placement of Interceed mesh. POSTOPERATIVE DIAGNOSES: 1. Partial small bowel obstruction of the jejunojejunostomy. 2. Peritoneal implants, small bowel mesenteric. 3. Incarcerated incisional hernia. 4. Malnutrition. 5. Date of procedure: 02/20/2021. Surgeon: Juve Alvarez MD. PLAN: As stated above, surgery per Be Watt MD. Orders to be written postoperatively. Discussion with Carissa's mom and uncle. We will evaluate burak Osorio PA-C /[id number]
--- NOTE | 2021-02-24 08:19 | CONS ---
DATE OF SERVICE: 02/24/2021 REFERRING PHYSICIAN: CONSULTING PHYSICIAN: Be Watt MD REASON FOR CONSULTATION: Septic shock. HISTORY OF PRESENT ILLNESS: This is a 60-year-old female who is new to me. I was contacted by nursing staff due to the patient's hypotension, unresponsiveness, tachycardia, and obvious concerning signs for septic shock. The patient underwent a CT scan prior to me being notified and there was concern for anastomotic failure. The patient had a probable partial small-bowel obstruction at the jejunostomy performed on 02/20/2021, although no operative report is available. She is unresponsive to communication at this time. PAST MEDICAL HISTORY: Type 2 diabetes, lower extremity edema, polycystic ovarian syndrome, hypertension, morbid obesity, sleep apnea, active smoking, history of appendectomy, history of gastric bypass with Marshal-en-Y in 2012, cholecystectomy, tonsillectomy, and right nephrectomy. SOCIAL HISTORY: She is a smoker. REVIEW OF SYSTEMS: GENERAL: The patient is unresponsive. HEENT: No abnormalities noted in chart. CARDIOVASCULAR: No reported myocardial infarction in chart. RESPIRATORY: Some history of possible COVID vaccine, although no card is readily available. GASTROINTESTINAL: The patient has been getting feeding tubes. She has malnutrition and has a G-tube. She has reported a significant weight loss recently. The remainder of the systems are reviewed except for psychiatric, which in the chart, she has some depression noted. However, these are reviewed in the chart and no other gross abnormalities are noted. PHYSICAL EXAMINATION: VITAL SIGNS: Temperature 95.8, blood pressure 110/50, and pulse 130. HEENT: Pupils are equal to light. RESPIRATORY: Lungs are clear to auscultation bilaterally. CARDIOVASCULAR: Regular rhythm and rate. ABDOMEN: Distended. EXTREMITIES: Present but not moving due to unresponsive nature. NEUROLOGICAL: Nonresponsive. LABORATORY RESULTS: Show white blood cell count of 18,000. Potassium is 5.7, creatinine is 1.5, magnesium is 2.5, phosphorus is 5.5, total bilirubin is 1.1, and BNP is 4000. IMAGING: CT scan shows new massive free air in the abdomen, pneumatosis, portal venous gas, and basilar atelectasis. ASSESSMENT: Severe septic shock. PLAN: The patient will be taken emergently to the operating room in a stat condition. She has a Puckett catheter in. Zosyn has been started on a stat basis. Also, we will begin fluid resuscitation. The patient most likely will remain intubated in the postoperative period. Her condition is obviously concerning. The risks, benefits, alternatives, and limitations were unable to be discussed with the patient due to the emergent condition and the unresponsiveness of the patient as this is considered a definitive emergency. Be Watt MD /[id number]
[2021-02-24] MEDS ORDERED: Albuterol 0.083% 2.5 MG/3 ML Neb Soln NEB PRN (08:26)
[2021-02-24] MEDS ORDERED: Acetaminophen 650 MG Supp RECTAL PRN (08:32)
--- NOTE | 2021-02-24 08:37 | PCM.CONS ---
H&P History of Present Illness - General Date of Service: 02/24/21 Admit Problem/Dx: Admission Diagnosis/Problem Admission Diagnosis/Problem Sepsis Source of Information: Provider History Limitations: Reports: Altered Mental Status (sedated) - History of Present Illness Initial Comments - Free Text/Narative: CC: septic shock HPI: Carissa was admitted on February 16 for surgical management of an obstruction at her jejunojejunostomy. She underwent an exploratory laparotomy with revision of the jejunojejunostomy as well as release of an incarcerated incisional hernia and PEG tube placement. She had seem to be progressing well since surgery and did well with tube feedings over the last several days. Unfortunately last night she developed increasing abdominal pain, nausea and hematemesis. She had work-up including laboratory studies and a CT scan of the abdomen and pelvis. The CT scan showed massive free intraperitoneal air concerning for bowel obstruction. The patient was taken to the operating room for urgent surgical intervention. She had an exploratory laparotomy with extensive intestinal contents in the abdomen. She underwent an extensive washout. The suspected area of concern of the bowel was repaired. She returned to the intensive care unit in critical condition with significant hypotension and she was ventilated. Because of the mechanical ventilation she is not able to provide any reliable history at this time. Middle Back Pain Score (Numeric/FACES): 10 Incisional Pain Score (Numeric/FACES): 10 - Related Data Allergies/Adverse Reactions: Allergies Allergy/AdvReac Type Severity Reaction Status Date / Time procaine HCl [From Novocain] Allergy Unknown Hives Verified 02/16/21 06:41 lactose Allergy Hives Verified 02/16/21 06:41 Sulfa (Sulfonamide Allergy Hives Verified 02/16/21 06:41 Antibiotics) multivitamin infusion, adult AdvReac Severe Nausea and Verified 02/19/21 10:20 no.4 w Vomiting [From Infuvite Adult] magnesium AdvReac Nausea and Verified 02/17/21 10:02 Vomiting Home Medications: Home Meds atenoloL [Tenormin] 25 mg PO BID 05/12/13 [History] Ondansetron [Zofran] 4 mg PO Q6H PRN 06/23/13 [History] Cholecalciferol (Vitamin D3) [Vitamin D3] 1,000 units PO DAILY 02/14/21 [History] Metoclopramide HCl 10 mg PO Q6H PRN 02/14/21 [History] Multivitamin 1 tab PO BID 02/14/21 [History] Prochlorperazine [Compazine] 10 mg PO TID PRN 02/14/21 [History] Temazepam [Restoril] 30 mg PO BEDTIME PRN 02/14/21 [History] Acetaminophen/Codeine [Tylenol with Codeine No.3 300MG/30MG] 1 tab PO TID 02/16/21 [History] traMADol [Ultram] 50 mg PO Q6H PRN 02/16/21 [History] Past Medical History HEENT History: Reports: Impaired Vision Cardiovascular History: Reports: Hypertension Gastrointestinal History: Reports: Cholelithiasis Genitourinary History: Reports: Other (See Below) Other Genitourinary History: As a smal child had a "passage way surgery" Musculoskeletal History: Reports: Fracture Oncologic (Cancer) History: Reports: Other (See Below) Other Oncologic History: kidney - Infectious Disease History Infectious Disease History: Reports: Chicken Pox - Past Surgical History HEENT Surgical History: Reports: Tonsillectomy GI Surgical History: Reports: Appendectomy, Bariatric Procedure, Cholecystectomy, Colonoscopy, EGD, Hernia, Abdominal, Other (See Below) Other GI Surgeries/Procedures: panicalectomy Female Surgical History: Reports: Breast Biopsy, Hysterectomy, Nephrectomy Social & Family History - Family History Family Medical History: No Pertinent Family History - Tobacco Use Tobacco Use Status *Q: Light Tobacco User Years of Tobacco use: 40 Packs/Tins Daily: 0.5 - Caffeine Use Caffeine Use: Reports: None - Recreational Drug Use Recreational Drug Use: No H&P Review of Systems - Review of Systems: Review Of Systems: Unable To Obtain Reason Not Obtained: intubated and sedated Exam - Exam Exam: See Below - Vital Signs Vital Signs: Last Vital Signs Temp 35.4 C L 02/24/21 05:24 Pulse 130 H 02/24/21 05:35 Resp 20 02/24/21 04:43 BP 110/50 L 02/24/21 05:26 Pulse Ox 89 L 02/24/21 04:43 Weight: 102.4 kg - Exam Quality Assessment: Supplemental Oxygen General: Sedated. No: Alert, Mild Distress HEENT: No: Mucosa Moist & [place] (dry), Scleral Icterus Neck: No: Lymphadenopathy, JVD Lungs: Clear to Auscultation, Normal Respiratory Effort Cardiovascular: Regular Rhythm, Tachycardia. No: Systolic Murmur GI/Abdominal Exam: Soft, No Distention. No: Normal Bowel Sounds Extremities: No Pedal Edema. No: Increased Warmth Peripheral Pulses: 1+: Dorsalis Pedis (L), Dorsalis Pedis (R) Skin: Warm, Dry Neuro Extensive - Mental Status: No: Alert Neuro Extensive - Motor, Sensory, Reflexes: No: Tremor Psychiatric: No: Alert, Agitated - Patient Data Lab Results Last 24 hrs: Laboratory Results - last 24 hr 02/24/21 02/24/21 02/24/21 Range/Units 04:40 04:40 04:40 WBC 18.2 H (4.5-11.0) K/uL RBC 4.40 (3.30-5.50) M/uL Hgb 14.0 (12.0-15.0) g/dL Hct 44.3 (36.0-48.0) % MCV 101 H (80-98) fL MCH 32 H (27-31) pg MCHC 32 (32-36) % Plt Count 273 (150-400) K/uL Puncture Site ABG pH (7.350-7.450) ABG pCO2 (35.0-42.0) mmHg ABG pO2 (75.0-100.0) mmHg ABG HCO3 (22.0-26.0) mmol/L ABG Total CO2 (21.0-25.0) mmol/L ABG O2 Saturation (95.0-98.0) % ABG O2 Content (15.0-23.0) %vol ABG Base Excess mm/L ABG Hemoglobin (12.0-16.0) g/dL ABG Oxyhemoglobin % ABG Carboxyhemoglobin (0.0-1.6) % ABG Methemoglobin % Jayden Test O2 Delivery Device Oxygen Flow Rate L Sodium 132 L (140-148) mmol/L Potassium 5.7 H (3.6-5.2) mmol/L Chloride 99 L (100-108) mmol/L Carbon Dioxide 19 L (21-32) mmol/L Anion Gap 19.7 H (5.0-14.0) mmol/L BUN 34 H (7-18) mg/dL Creatinine 1.5 H D (0.6-1.0) mg/dL Est Cr Clr Drug Dosing 38.48 mL/min Estimated GFR (MDRD) 36 L (>60) Glucose 308 H (74-106) mg/dL Calcium 9.6 (8.5-10.1) mg/dL Phosphorus 5.5 H (2.5-4.9) mg/dL Magnesium 2.5 H (1.8-2.4) mg/dL Total Bilirubin 1.1 H D (0.2-1.0) mg/dL AST 57 H (15-37) U/L ALT 209 H (12-78) U/L Alkaline Phosphatase 214 H (46-116) U/L Troponin I < 0.017 (0.000-0.056) ng/mL NT-Pro-B Natriuret Pep 4932 H (5-125) pg/mL Total Protein 6.3 L (6.4-8.2) g/dL Albumin 2.5 L (3.4-5.0) g/dL Globulin 3.8 H (2.3-3.5) g/dL Albumin/Globulin Ratio 0.7 L (1.2-2.2) 02/24/21 Range/Units 08:24 WBC (4.5-11.0) K/uL RBC (3.30-5.50) M/uL Hgb (12.0-15.0) g/dL Hct (36.0-48.0) % MCV (80-98) fL MCH (27-31) pg MCHC (32-36) % Plt Count (150-400) K/uL Puncture Site A-line ABG pH 7.250 L (7.350-7.450) ABG pCO2 41.1 (35.0-42.0) mmHg ABG pO2 95.2 (75.0-100.0) mmHg ABG HCO3 17.4 L (22.0-26.0) mmol/L ABG Total CO2 16.0 L (21.0-25.0) mmol/L ABG O2 Saturation 95.2 (95.0-98.0) % ABG O2 Content 18.0 (15.0-23.0) %vol ABG Base Excess -9.1 mm/L ABG Hemoglobin 13.7 (12.0-16.0) g/dL ABG Oxyhemoglobin 92.9 % ABG Carboxyhemoglobin 1.5 (0.0-1.6) % ABG Methemoglobin 0.9 % Jayden Test A-line O2 Delivery Device Ventilator Oxygen Flow Rate L Sodium (140-148) mmol/L Potassium (3.6-5.2) mmol/L Chloride (100-108) mmol/L Carbon Dioxide (21-32) mmol/L Anion Gap (5.0-14.0) mmol/L BUN (7-18) mg/dL Creatinine (0.6-1.0) mg/dL Est Cr Clr Drug Dosing mL/min Estimated GFR (MDRD) (>60) Glucose (74-106) mg/dL Calcium (8.5-10.1) mg/dL Phosphorus (2.5-4.9) mg/dL Magnesium (1.8-2.4) mg/dL Total Bilirubin (0.2-1.0) mg/dL AST (15-37) U/L ALT (12-78) U/L Alkaline Phosphatase (46-116) U/L Troponin I (0.000-0.056) ng/mL NT-Pro-B Natriuret Pep (5-125) pg/mL Total Protein (6.4-8.2) g/dL Albumin (3.4-5.0) g/dL Globulin (2.3-3.5) g/dL Albumin/Globulin Ratio (1.2-2.2) Result Diagrams: 02/24/21 12:00 02/24/21 12:00 Imaging Impressions Last 24 hrs: Chest x-ray-image personally reviewed-heart size is normal. Endotracheal tube appears to be in satisfactory position. No obvious infiltrates. CT scan of the abdomen and pelvis-these images were also personally reviewed- extensive free intraperitoneal air concerning for obstruction. Small fluid in both paracolic gutters. Status post right nephrectomy. Sepsis Event Note - Evaluation Sepsis Screening Result: No Definite Risk Current Stage of Sepsis: Septic Shock Possible Source of Sepsis: GI Tract/Intra-abdominal - Focused Exam Sepsis Event Note Statement: Focused Sepsis Exam Completed Vital Signs: Vital Signs Temp Temp Pulse Pulse Resp BP BP 02/24/21 05:35 130 H 02/24/21 05:26 110/50 L 02/24/21 05:24 35.4 C L 09/11/21 05:07 103/60 02/24/21 04:43 35 C L 54 L 20 89/48 L 02/24/21 03:28 02/24/21 03:00 35.8 C L 89 19 105/47 L 02/24/21 00:34 02/23/21 23:26 85 16 02/23/21 22:05 80 117/62 BP Pulse Ox 02/24/21 05:35 02/24/21 05:26 02/24/21 05:24 02/24/21 05:07 02/24/21 04:43 89 L 02/24/21 03:28 105/47 L 02/24/21 03:00 93 L 02/24/21 00:34 93 L 02/23/21 23:26 119/62 94 L 02/23/21 22:05 Respiratory Effort Without Exertion: Dyspneic Heart Sounds: Other (see below) (Tachycardic) Capillary Refill, Detail: Less than/Equal to (</=) 2 Seconds Pulse Description: 1+ Thready Peripheral Pulse Location: Dorsalis Pedis Skin Exam (Focused Sepsis): Normal Turgor Date Exam was Performed: 02/24/21 Time Exam was Performed: 08:30 *Q Meaningful Use (ADM) - VTE Risk Assess *Q Each Risk Factor Represents 1 Point: Age 41 - 59 years, Obesity ( BMI > 25 kg/m2), Sepsis Total Score 1 Point Risk Factors: 3 Each Risk Factor Represents 2 Points: Malignancy (present or previous), Major surgery greater than 45 minutes Total Score 2 Point Risk Factors: 4 Each Risk Factor Represents 3 Points: None Total Score 3 Point Risk Factors: 0 Each Risk Factor Represents 5 Points: None Total Score 5 Point Risk Factors: 0 Venous Thromboembolism Risk Factor Score *Q: 7 Consult PN Assessment/Plan POD#: 0 Procedures: Procedures BLOOD TYPING SEROLOGIC ABO (02/25/13) BLOOD TYPING SEROLOGIC RH(D) (02/25/13) EGD DILATE STRICTURE (10/04/13) RBC ANTIBODY SCREEN (02/25/13) (1) Perforated bowel SNOMED Code(s): 09648876 Code(s): K63.1 - PERFORATION OF INTESTINE (NONTRAUMATIC) Current Visit: Yes (2) Septic shock SNOMED Code(s): 95389180 Code(s): A41.9 - SEPSIS, UNSPECIFIED ORGANISM; R65.21 - SEVERE SEPSIS WITH SE PTIC SHOCK Current Visit: Yes (3) Acute kidney injury SNOMED Code(s): 21547438, 71787721 Code(s): N17.9 - ACUTE KIDNEY FAILURE, UNSPECIFIED Current Visit: Yes (4) Hyperkalemia SNOMED Code(s): 58716261 Code(s): E87.5 - HYPERKALEMIA Current Visit: Yes (5) Hx of renal cell cancer SNOMED Code(s): 711005084 Code(s): Z85.528 - PERSONAL HISTORY OF OTHER MALIGNANT NEOPLASM OF KIDNEY Current Visit: No Problem List Initiated/Reviewed/Updated: Yes My Orders Last 24 Hours: My Active Orders 02/24/21 08:26 Albuterol [Proventil Neb Soln] 2.5 mg NEB Q2H PRN 02/24/21 08:27 RT Aerosol Therapy [RC] ASDIRECTED 02/24/21 08:30 Norepinephrine 8 MG in D5W @ 2 MCG/MIN(250ml) Norepinephrine [Levophed] 8 mg Dextrose 5% in Water 250 ml IV TITRATE 02/24/21 08:31 Cardiac Monitoring [RC] .As Directed Mechanical Ventilation [RT Ventilator, Adult] [RC] ASDIRECTED 02/24/21 08:32 Acetaminophen [Tylenol] 650 mg RECTAL Q4H PRN 02/24/21 08:33 RASS Sedation Scale [RC] ASDIRECTED Desired Level of Sedation (RASS) [AST] Click to Edit 02/24/21 08:45 Aztreonam [Azactam] 1 gm Sodium Chloride 0.9% [Normal Saline] 50 ml IV Q12H Linezolid [Zyvox] 600 mg Premix Bag 1 bag IV Q12H Propofol Drip @ 5 MCG/KG/MIN(100ml) propofoL [Diprivan 100 ML] 100 ml IV TITRATE 02/24/21 10:00 Albuterol/Ipratropium [DuoNeb 3.0-0.5 MG/3 ML] 3 ml INH QID 02/24/21 12:00 BASIC METABOLIC PANEL,BMP [CHEM] Urgent HGB [HEMOGLOBIN] [HEME] Timed 02/25/21 05:00 BLOOD GAS ARTERIAL [BG] Timed CBC W/O DIFF,HEMOGRAM [HEME] Timed (1) COMPREHENSIVE METABOLIC PN,CMP [CHEM] Timed 02/25/21 09:00 Enoxaparin [Lovenox] 40 mg SUBCUT Q24H Plan: ASSESSMENT AND PLAN - Perforated intestine-complicated by septic shock necessitating 2 vasopressors at this time. Status post emergent exploratory laparotomy this morning with extensive washout and repair of perforated intestine. She is on broad-spectrum antibiotics. She has an arterial line that is not functioning very well. She does have central access. Significant lactic acidosis noted. -Continue vasopressor support -Continue maintenance fluids -Bolus as needed for persistent hypotension -Hydrocortisone every 8 hours for 24 hours and reassess -Continue broad-spectrum antibiotic therapy -Follow-up cultures Acute respiratory failure with hypoxia-multifactorial with septic shock and altered mental status. Ventilating well at this time. Currently has acidosis with attempted respiratory compensation. -Mechanical ventilation Hyperkalemia-multifactorial with sepsis, acute kidney injury and acidosis. Not making any urine at this time. Unable to use Kayexalate because of recent surgery -Calcium gluconate x1, additional fluid bolus, nebulizer therapy, D50 followed by insulin and then furosemide -Cardiac monitoring -Recheck level in a few hours Acute kidney injury-secondary to sepsis. Oliguric at this time. -IV fluids and vasopressor support as above Maintenance issues - -DVT prophylaxis-mechanical for now, consider pharmacological tomorrow -GI prophylaxis-IV PPI -Nutrition-nothing by mouth -Georges catheter-needed for strict intake and output monitoring in a critical patient CODE STATUS -full code Disposition -I anticipate discharge home after the hospital stay Critical care time of 60 minutes with critical care time including stabilization of blood pressure, management of mechanical ventilation assessment of hemodynamic status and review of records. Family has been updated. Mohamud De León M.D. Requesting Provider: Dr. Watt Date Consult Requested: 02/24/21 Reason for Consult: Septic shock Patient History Reviewed: Yes Admission H&P Reviewed: Yes Notified Requestor: Yes Time Spent (in minutes): 90
[2021-02-24] MEDS ORDERED: propofoL 100 ML IV SCH (08:45)
[2021-02-24] MEDS: Acetaminophen 500 MG Tab PO SCH (08:50)
[2021-02-24] MEDS: Vitamin A 10,000 Unit Cap PO SCH (08:50)
[2021-02-24] MEDS ORDERED: Linezolid 600 MG in Premix Bag 1 BAG IV SCH (09:00)
[2021-02-24] MEDS ORDERED: [UNRECOGNIZED DRUG - REMARK] TOP SCH (09:00)
[2021-02-24] MEDS ORDERED: Heparin Sodium 5,000 UNITS in Sodium Chloride 0.9% 500 ML IV SCH (09:15)
[2021-02-24] MEDS ORDERED: Vasopressin 100 UNITS in Dextrose 5% in Water 250 ML IV SCH ×2 (10:15)
[2021-02-24] MEDS: Albuterol/Ipratropium 3.0-0.5 MG/3 ML Neb Soln INH SCH ×2 (10:24→14:25)
[2021-02-24] MEDS ORDERED: Hydrocortisone Sodium Succinate 100 MG/2 ML SDV IVPUSH ONE (10:30)
[2021-02-24] MEDS ORDERED: Piperacillin/Tazobactam/Dext 3.375 GM in Premix Bag 1 BAG IV SCH (12:00)
[2021-02-24] MEDS ORDERED: Glucagon,Human Recombinant 1 MG Vial IM PRN ×2 (13:07→16:14)
[2021-02-24] MEDS ORDERED: Calcium Gluconate 10% 1 GM/10 ML SDV IVPUSH ONE ×2 (13:45→16:14)
[2021-02-24] MEDS ORDERED: Insulin Regular, Human 100 Units/ML 3 ML Vial IVPUSH ONE ×2 (13:45→16:14)
[2021-02-24] MEDS ORDERED: Furosemide 20 MG/2 ML VIAL IVPUSH ONE (13:45)
[2021-02-24] MEDS ORDERED: 50% Dextrose in Water 50 ML Syringe IVPUSH ONE ×2 (13:45→16:14)
[2021-02-24] MEDS: HYDROmorphone/Normal Saline 15 MG/30 ML PCA IV PRN (13:58)
[2021-02-24] MEDS ORDERED: Sodium Chloride 0.9% 500 ML IV SCH (14:15)
[2021-02-24 14:26] VITALS: PULSE 117
[2021-02-24] MEDS ORDERED: Norepinephrine 8 MG in Dextrose 5% in Water 242 ML IV SCH ×2 (14:30)
[2021-02-24] MEDS ORDERED: Pantoprazole 40 MG Vial IV SCH (16:00)
[2021-02-24] MEDS ORDERED: Enoxaparin 40 MG/0.4 ML Syringe SUBCUT SCH (16:00)
[2021-02-24] MEDS ORDERED: Sodium Polystyrene Sulfonate 15 GM/60 ML Susp 60 ML Bot RECTAL ONE (16:13)
[2021-02-24] MEDS ORDERED: 50% Dextrose in Water 50 ML Syringe IVPUSH PRN (16:14)
[2021-02-24] MEDS ORDERED: Sodium Bicarbonate 8.4% 50 MEQ/50 ML Syringe IV ONE (16:16)
[2021-02-24] MEDS ORDERED: Dextrose 5% in Water 1,000 ML IV ONE (16:30)
[2021-02-24] MEDS ORDERED: Sodium Chloride 0.9% 500 ML IV ONE (16:30)
[2021-02-24] MEDS ORDERED: Furosemide 100 MG/10 ML SDV IVPUSH ONE (16:35)
[2021-02-24] MEDS ORDERED: Sodium Bicarbonate 8.4% 50 MEQ/50 ML Syringe ONE (16:38)
--- NOTE | 2021-02-24 17:00 | PCM.DCSUM1 ---
Discharge Summary - Hospital Course Brief History: 60-year-old female with history of gastric bypass in 2013, renal cell cancer status post right nephrectomy, tobacco dependence who was admitted on February 16 for surgical management of a chronic bowel obstruction at the jejunojejunostomy. Diagnosis: Stroke: No - Discharge Data Discharge Date: 02/24/21 Discharge Disposition: DC/Tfer to Acute Hospital 02 Condition: Critical - Referral to Home Health Primary Care Physician: Olvin Daniel MD - Discharge Diagnosis/Problem(s) (1) Perforated bowel SNOMED Code(s): 10375464 ICD Code: K63.1 - PERFORATION OF INTESTINE (NONTRAUMATIC) Status: Acute Current Visit: Yes (2) Septic shock SNOMED Code(s): 15123691 ICD Code: A41.9 - SEPSIS, UNSPECIFIED ORGANISM; R65.21 - SEVERE SEPSIS WITH SEPTIC SHOCK Status: Acute Current Visit: Yes (3) Acute kidney injury SNOMED Code(s): 49206181, 27823638 ICD Code: N17.9 - ACUTE KIDNEY FAILURE, UNSPECIFIED Status: Acute Current Visit: Yes (4) Hyperkalemia SNOMED Code(s): 68547186 ICD Code: E87.5 - HYPERKALEMIA Status: Acute Current Visit: Yes (5) Hx of renal cell cancer SNOMED Code(s): 065021208 ICD Code: Z85.528 - PERSONAL HISTORY OF OTHER MALIGNANT NEOPLASM OF KIDNEY Status: Chronic Current Visit: No - Patient Summary/Data Operative Procedure(s) Performed: Exploratory laparotomy performed by Dr. Alvarez on 02/16 -no operative report is available but as best I can figure she had exploratory laparotomy with revision of the jejunojejunostomy, release of an incarcerated incisional hernia and placement of a percutaneous gastrostomy tube in the remnant stomach. On 02/17 she had a tunneled Puckett catheter placed by Dr. Alvarez. On 02/24 she had an emergent exploratory laparotomy performed by Dr. Watt. This operative report is not available either but he did report that he further revised the jejunojejunostomy did some bowel decompression and did an extensive washout of the abdomen. Consults: Consultations 02/20/21 11:57 Consult to Bariatric Services [CONS] Routine Comment: Consult to Route Service Representative [CONS] Routine Comment: Physician Instructions: Quantity: Respiratory Care Assess and Treatment [CONS] Routine Comment: Physician Instructions: Post-Op Pneumonia Prevention 02/22/21 07:32 Consult to Case Management/Lineman [CONS] Routine Comment: Physician Instructions: plan tentative discharge home Monday 02/26 Service(s) to be Consulted: Case Management PT Evaluation and Treatment [CONS] Routine Please Evaluate and Treat. PT Reason for Consult: weakness Discharge Disposition: Home This query below is only for informational purposes and is not editable. Admission Diagnosis/Problem: Hypokalemia 02/24/21 07:39 Respiratory Care Assess and Treatment [CONS] Routine Comment: Physician Instructions: Post-Op Pneumonia Prevention Labs Pending at D/C: Cultures obtained during surgery on 02/24 Hospital Course: Carissa was admitted on February 16 for surgical management of a chronic bowel obstruction at the jejunojejunostomy from her previous gastric bypass. She underwent an exploratory laparotomy with revision of the jejunojejunostomy, release of an incarcerated incisional hernia, placement of a percutaneous gastrostomy tube and placement of Interceed mesh. She did well postoperatively and was managed with TPN initially. She did have a Puckett catheter inserted on February 17. This was used for the TPN. Eventually tube feeds were started and advanced to goal. She has also been able to take in some oral intake along the way. She had been doing well up until last night, overnight from February 23 to February 24. Overnight on February 24 she developed increasing abdominal pain as well as nausea. Initial attempts to relieve the nausea were unsuccessful. This prompted a CT scan of the abdomen and pelvis which showed a large amount of free intraperitoneal air as well as some portal venous gas. There is concern for ileus of the small intestine and right colon. There is significant dilation of the small intestine also noted. Dr. Watt who was covering for Dr. Alvarez in his absence was consulted and the patient was emergently taken to the operating room. She underwent an exploratory laparotomy with some decompression of the distended small intestine. She had an extensive washout with feculent material noted in the abdomen. The presumed area of of rupture was the jejunojejunostomy that was recently revised and did not appear to be healing well. There was difficulty with hypotension during surgery. The patient was transferred to the intensive care unit after surgery. I was consulted upon arrival to the emergency room. Patient was hypotensive so norepinephrine was initiated. Broad-spectrum antibiotic therapy including linezolid, Pip/Tazo and aztreonam were initiated. It was reported that cultures were obtained during the surgical case. Patient initially responded well to the vasopressor therapy with some improvement in her blood pressure. An arterial line was placed after her arrival to the intensive care unit. She received an additional IV fluid bolus of 1000 mL at this time as well with her persistent hypotension. Blood gases were obtained and showed a pH of 7.25 with a PCO2 of 40. Lactic acid at that point was 3.7. Throughout the morning her blood pressure declined despite the vasopressor therapy. Norepinephrine was titrated up to 12 mcg. At this point she received an additional fluid bolus and vasopressin was initiated. She also received a dose of hydrocortisone. Her repeat lactic acid level couple of hours later was up to 4.6 and her potassium had jumped up to 7.8. We were achieving decent blood pressures at this point but unfortunately she was not making any urine. This was all around noon today. With the rise in the potassium we gave an albuterol nebulizer, an amp of D50 followed by 10 units of IV insulin as well as IV calcium gluconate. She received 20 mg of IV furosemide. Peaked T waves were noted on telemetry monitoring at this time. Over the next couple of hours the patient remained in a similar condition with borderline blood pressure control but a mean arterial pressure greater than 65. She has not made any urine. She continues to have good ventilatory status with minimal vent support at this time. She has been lightly sedated mostly to avoid hypotension with the sedating medications and has done well with this. Repeat potassium after the initial measures revealed her potassium had risen up to 8.2 and her lactic acid was up to 7.2 despite additional volume resuscitation and vasopressor support. At this point she received another round of D50 along with insulin and calcium. She also received rectal Kayexalate. I contacted critical care team at [facility] in [place] and reviewed the case. Given her significant acidosis and critical potassium it seems that the only option in the setting of anuria is dialysis. The plan is for her to be transferred to their hospital via air ambulance for emergent dialysis. She is currently critically ill and in need of immediate intervention with the critical care team. The benefits of transfer do outweigh the risks at this point. I believe she is too ill to be safely transported by ambulance at this time. Previous surgical history -Laparoscopic gastric bypass surgery performed in [address] Alvarez -Right nephrectomy performed 07/[address] Alvarez - Patient Instructions Other/Special Instructions: transfer to [facility], anuric renal failure, hyperK+, septic shock - Discharge Plan *PRESCRIPTION DRUG MONITORING PROGRAM REVIEWED*: Not Applicable *COPY OF PRESCRIPTION DRUG MONITORING REPORT IN PATIENT VINCENT: Not Applicable Home Medications: Home Meds atenoloL [Tenormin] 25 mg PO BID 05/12/13 [History] Ondansetron [Zofran] 4 mg PO Q6H PRN 06/23/13 [History] Cholecalciferol (Vitamin D3) [Vitamin D3] 1,000 units PO DAILY 02/14/21 [History] Metoclopramide HCl 10 mg PO Q6H PRN 02/14/21 [History] Multivitamin 1 tab PO BID 02/14/21 [History] Prochlorperazine [Compazine] 10 mg PO TID PRN 02/14/21 [History] Temazepam [Restoril] 30 mg PO BEDTIME PRN 02/14/21 [History] Acetaminophen/Codeine [Tylenol with Codeine No.3 300MG/30MG] 1 tab PO TID 02/16/21 [History] traMADol [Ultram] 50 mg PO Q6H PRN 02/16/21 [History] Oxygen Therapy Mode: Mechanical Ventilation Patient Handouts: Incision Care, Adult, [id number], Preventing Problems After Surgery, How to Prevent Constipation After Surgery - Discharge Summary/Plan Comment DC Time >30 min.: Yes Total # of Minutes for Discharge Time: 60-transfer to acute hospital - Patient Data Vitals - Most Recent: Last Vital Signs Temp 36.1 C 02/24/21 15:00 Pulse 117 H 02/24/21 14:25 Resp 26 H 02/24/21 16:34 BP 91/61 02/24/21 16:34 Pulse Ox 94 L 02/24/21 16:34 Weight - Most Recent: 106.4 kg I&O - Last 24 hours: Intake & Output 02/24/21 02/24/21 02/24/21 06:59 14:59 22:59 Intake Total 1684 2607 Output Total 175 100 200 Balance 1509 -100 2407 Lab Results - Last 24 hrs: Laboratory Results - last 24 hr 02/24/21 02/24/2121 Range/Units 04:40 04:40 04:40 WBC 18.2 H (4.5-11.0) K/uL RBC 4.40 (3.30-5.50) M/uL Hgb 14.0 (12.0-15.0) g/dL Hct 44.3 (36.0-48.0) % MCV 101 H (80-98) fL MCH 32 H (27-31) pg MCHC 32 (32-36) % Plt Count 273 (150-400) K/uL Puncture Site ABG pH (7.350-7.450) ABG pCO2 (35.0-42.0) mmHg ABG pO2 (75.0-100.0) mmHg ABG HCO3 (22.0-26.0) mmol/L ABG Total CO2 (21.0-25.0) mmol/L ABG O2 Saturation (95.0-98.0) % ABG O2 Content (15.0-23.0) %vol ABG Base Excess mm/L ABG Hemoglobin (12.0-16.0) g/dL ABG Oxyhemoglobin % ABG Carboxyhemoglobin (0.0-1.6) % ABG Methemoglobin % Jayden Test O2 Delivery Device Oxygen Flow Rate L Sodium 132 L (140-148) mmol/L Potassium 5.7 H (3.6-5.2) mmol/L Chloride 99 L (100-108) mmol/L Carbon Dioxide 19 L (21-32) mmol/L Anion Gap 19.7 H (5.0-14.0) mmol/L BUN 34 H (7-18) mg/dL Creatinine 1.5 H D (0.6-1.0) mg/dL Est Cr Clr Drug Dosing 38.48 mL/min Estimated GFR (MDRD) 36 L (>60) Glucose 308 H (74-106) mg/dL POC Glucose (74-106) mg/dL Lactic Acid (0.4-2.0) mmol/L Calcium 9.6 (8.5-10.1) mg/dL Phosphorus 5.5 H (2.5-4.9) mg/dL Magnesium 2.5 H (1.8-2.4) mg/dL Total Bilirubin 1.1 H D (0.2-1.0) mg/dL AST 57 H (15-37) U/L ALT 209 H (12-78) U/L Alkaline Phosphatase 214 H (46-116) U/L Troponin I < 0.017 (0.000-0.056) ng/mL NT-Pro-B Natriuret Pep 4932 H (5-125) pg/mL Total Protein 6.3 L (6.4-8.2) g/dL Albumin 2.5 L (3.4-5.0) g/dL Globulin 3.8 H (2.3-3.5) g/dL Albumin/Globulin Ratio 0.7 L (1.2-2.2) 02/24/21 02/24/21 02/24/21 Range/Units 08:24 08:48 12:00 WBC (4.5-11.0) K/uL RBC (3.30-5.50) M/uL Hgb 14.1 (12.0-15.0) g/dL Hct (36.0-48.0) % MCV (80-98) fL MCH (27-31) pg MCHC (32-36) % Plt Count (150-400) K/uL Puncture Site A-line ABG pH 7.250 L (7.350-7.450) ABG pCO2 41.1 (35.0-42.0) mmHg ABG pO2 95.2 (75.0-100.0) mmHg ABG HCO3 17.4 L (22.0-26.0) mmol/L ABG Total CO2 16.0 L (21.0-25.0) mmol/L ABG O2 Saturation 95.2 (95.0-98.0) % ABG O2 Content 18.0 (15.0-23.0) %vol ABG Base Excess -9.1 mm/L ABG Hemoglobin 13.7 (12.0-16.0) g/dL ABG Oxyhemoglobin 92.9 % ABG Carboxyhemoglobin 1.5 (0.0-1.6) % ABG Methemoglobin 0.9 % Jayden Test A-line O2 Delivery Device Ventilator Oxygen Flow Rate L Sodium (140-148) mmol/L Potassium (3.6-5.2) mmol/L Chloride (100-108) mmol/L Carbon Dioxide (21-32) mmol/L Anion Gap (5.0-14.0) mmol/L BUN (7-18) mg/dL Creatinine (0.6-1.0) mg/dL Est Cr Clr Drug Dosing mL/min Estimated GFR (MDRD) (>60) Glucose (74-106) mg/dL POC Glucose (74-106) mg/dL Lactic Acid 3.7 H (0.4-2.0) mmol/L Calcium (8.5-10.1) mg/dL Phosphorus (2.5-4.9) mg/dL Magnesium (1.8-2.4) mg/dL Total Bilirubin (0.2-1.0) mg/dL AST (15-37) U/L ALT (12-78) U/L Alkaline Phosphatase (46-116) U/L Troponin I (0.000-0.056) ng/mL NT-Pro-B Natriuret Pep (5-125) pg/mL Total Protein (6.4-8.2) g/dL Albumin (3.4-5.0) g/dL Globulin (2.3-3.5) g/dL Albumin/Globulin Ratio (1.2-2.2) 02/24/21 02/24/21 02/24/21 Range/Units 12:00 12:00 15:53 WBC (4.5-11.0) K/uL RBC (3.30-5.50) M/uL Hgb (12.0-15.0) g/dL Hct (36.0-48.0) % MCV (80-98) fL MCH (27-31) pg MCHC (32-36) % Plt Count (150-400) K/uL Puncture Site ABG pH (7.350-7.450) ABG pCO2 (35.0-42.0) mmHg ABG pO2 (75.0-100.0) mmHg ABG HCO3 (22.0-26.0) mmol/L ABG Total CO2 (21.0-25.0) mmol/L ABG O2 Saturation (95.0-98.0) % ABG O2 Content (15.0-23.0) %vol ABG Base Excess mm/L ABG Hemoglobin (12.0-16.0) g/dL ABG Oxyhemoglobin % ABG Carboxyhemoglobin (0.0-1.6) % ABG Methemoglobin % Jayden Test O2 Delivery Device Oxygen Flow Rate L Sodium 129 L (140-148) mmol/L Potassium 7.8 H* 8.2 H* (3.6-5.2) mmol/L Chloride 101 (100-108) mmol/L Carbon Dioxide 14 L (21-32) mmol/L Anion Gap 21.8 H (5.0-14.0) mmol/L BUN 40 H (7-18) mg/dL Creatinine 1.7 H (0.6-1.0) mg/dL Est Cr Clr Drug Dosing 33.95 mL/min Estimated GFR (MDRD) 31 L (>60) Glucose 155 H (74-106) mg/dL POC Glucose (74-106) mg/dL Lactic Acid 4.6 H (0.4-2.0) mmol/L Calcium 8.5 (8.5-10.1) mg/dL Phosphorus (2.5-4.9) mg/dL Magnesium (1.8-2.4) mg/dL Total Bilirubin (0.2-1.0) mg/dL AST (15-37) U/L ALT (12-78) U/L Alkaline Phosphatase (46-116) U/L Troponin I (0.000-0.056) ng/mL NT-Pro-B Natriuret Pep (5-125) pg/mL Total Protein (6.4-8.2) g/dL Albumin (3.4-5.0) g/dL Globulin (2.3-3.5) g/dL Albumin/Globulin Ratio (1.2-2.2) 02/24/21 02/24/21 02/24/21 Range/Units 15:53 16:00 16:18 WBC (4.5-11.0) K/uL RBC (3.30-5.50) M/uL Hgb (12.0-15.0) g/dL Hct (36.0-48.0) % MCV (80-98) fL MCH (27-31) pg MCHC (32-36) % Plt Count (150-400) K/uL Puncture Site A-line ABG pH 7.198 L* (7.350-7.450) ABG pCO2 25.6 L (35.0-42.0) mmHg ABG pO2 75.8 (75.0-100.0) mmHg ABG HCO3 9.6 L (22.0-26.0) mmol/L ABG Total CO2 8.9 L (21.0-25.0) mmol/L ABG O2 Saturation 92.8 L (95.0-98.0) % ABG O2 Content 18.0 (15.0-23.0) %vol ABG Base Excess -17.2 mm/L ABG Hemoglobin 14.0 (12.0-16.0) g/dL ABG Oxyhemoglobin 91.5 % ABG Carboxyhemoglobin 0.6 (0.0-1.6) % ABG Methemoglobin 0.8 % Jayden Test N/a O2 Delivery Device Ventilator Oxygen Flow Rate 50.0 L Sodium (140-148) mmol/L Potassium (3.6-5.2) mmol/L Chloride (100-108) mmol/L Carbon Dioxide (21-32) mmol/L Anion Gap (5.0-14.0) mmol/L BUN (7-18) mg/dL Creatinine (0.6-1.0) mg/dL Est Cr Clr Drug Dosing mL/min Estimated GFR (MDRD) (>60) Glucose (74-106) mg/dL POC Glucose 66 L (74-106) mg/dL Lactic Acid 7.2 H (0.4-2.0) mmol/L Calcium (8.5-10.1) mg/dL Phosphorus (2.5-4.9) mg/dL Magnesium (1.8-2.4) mg/dL Total Bilirubin (0.2-1.0) mg/dL AST (15-37) U/L ALT (12-78) U/L Alkaline Phosphatase (46-116) U/L Troponin I (0.000-0.056) ng/mL NT-Pro-B Natriuret Pep (5-125) pg/mL Total Protein (6.4-8.2) g/dL Albumin (3.4-5.0) g/dL Globulin (2.3-3.5) g/dL Albumin/Globulin Ratio (1.2-2.2) JOSUE Results - Last 24 hrs: Microbiology 02/24/21 08:13 Gram Stain - Final Abdominal Fluid - Aspirate Med Orders - Current: Current Medications Acetaminophen (Acetaminophen 500 Mg Tab) 1,000 mg PO Q8H [facility] Last Admin: 02/24/21 08:50 Dose: Not Given Documented by: Acetaminophen (Acetaminophen 500 Mg Tab) 500 mg PO Q8H PRN PRN Reason: MILD PAIN Acetaminophen (Acetaminophen 650 Mg Supp) 650 mg RECTAL Q4H PRN PRN Reason: Fever Albuterol (Albuterol 0.083% 2.5 Mg/3 Ml Neb Soln) 2.5 mg NEB Q2H PRN PRN Reason: worsening hypoxia/wheezing Last Admin: 02/24/21 13:16 Dose: 2.5 mg Documented by: Albuterol/Ipratropium (Albuterol/Ipratropium 3.0-0.5 Mg/3 Ml Neb Soln) 3 ml INH QIDRT [facility] Last Admin: 02/24/21 14:25 Dose: 3 ml Documented by: Atenolol (Atenolol 25 Mg Tab) 25 mg PO BID [facility] Last Admin: 02/23/21 22:05 Dose: 25 mg Documented by: Benzocaine/Menthol (Benzocaine/Cetylpyridinium/Menthol Lozenge) 1 lozenge MUCMEM Q1H PRN PRN Reason: Sore Throat Dextrose/Water (50% Dextrose In Water 50 Ml Syringe) 50 ml IVPUSH ASDIRECTED PRN PRN Reason: Hypoglycemia Diphenhydramine HCl (Diphenhydramine 50 Mg/Ml Sdv) 50 mg IVPUSH Q4H PRN PRN Reason: ITCHING Enoxaparin Sodium (Enoxaparin 40 Mg/0.4 Ml Syringe) 40 mg SUBCUT Q24H [facility] Glucagon (Glucagon,Human Recombinant 1 Mg Vial) 1 mg IM ASDIRECTED PRN PRN Reason: Hypoglycemia Glucagon (Glucagon,Human Recombinant 1 Mg Vial) 1 mg IM ASDIRECTED PRN PRN Reason: Hypoglycemia Heparin Sodium (Porcine) (Heparin Sodium 100 Units/Ml 5 Ml Syringe) 500 units FLUSH ASDIRECTED PRN PRN Reason: IV Use Last Admin: 02/24/21 09:03 Dose: 500 units Documented by: Hydrocortisone Sodium Succinate (Hydrocortisone Sodium Succinate 100 Mg/2 Ml Sdv) 100 mg IVPUSH Q8H [facility] Hydromorphone HCl (Hydromorphone/Normal Saline 15 Mg/30 Ml Locker Room Manager) 0 mg IV ASDIRECTED PRN; Protocol PRN Reason: Pain Last Admin: 02/24/21 13:58 Dose: 15 mg Documented by: Hydroxyzine HCl (Hydroxyzine Hcl 100 Mg/2 Ml Sdv) 100 mg IM Q4H PRN PRN Reason: breakthrough pain Last Admin: 02/24/21 01:35 Dose: 100 mg Documented by: Sodium Chloride (Normal Saline) 1,000 mls @ 125 mls/hr IV ASDIRECTED [facility] Last Admin: 02/24/21 09:59 Dose: 125 mls/hr Documented by: Piperacillin/Tazobactam/ (Dextrose 3.375 gm/ Premix) 50 mls @ 100 mls/hr IV Q6H [facility] Last Admin: 02/24/21 12:23 Dose: 100 mls/hr Documented by: Aztreonam 1 gm/ Sodium (Chloride) 50 mls @ 100 mls/hr IV Q12H [facility] Last Admin: 02/24/21 09:55 Dose: 100 mls/hr Documented by: Linezolid 600 mg/ Premix 300 mls @ 300 mls/hr IV Q12H [facility] Last Admin: 02/24/21 08:49 Dose: 300 mls/hr Documented by: Propofol (Diprivan 100 Ml) 100 mls @ 3.072 mls/hr IV TITRATE [facility]; Protocol Last Admin: 02/24/21 12:24 Dose: 5 mcg/kg/min, 3.072 mls/hr Documented by: Heparin Sodium (Porcine) 5,000 (units/ Sodium Chloride) 501 mls @ 0 mls/hr IV ASDIRECTED [facility] Last Admin: 02/24/21 13:22 Dose: 1 mls/hr Documented by: Vasopressin 100 units/ (Dextrose/Water) 255 mls @ 1.53 mls/hr IV TITRATE [facility]; Protocol Stop: 02/25/21 04:00 Last Titration: 02/24/21 16:45 Dose: 0.065 units/min, 9.945 mls/hr Documented by: Norepinephrine Bitartrate 8 mg (/ Dextrose/Water) 250 mls @ 3.75 mls/hr IV TITRATE [facility]; Protocol Last Admin: 02/24/21 14:35 Dose: 12 mcg/min, 22.5 mls/hr Documented by: Vasopressin 40 units/ Dextrose (/Water) 102 mls @ 1.53 mls/hr IV TITRATE [facility]; Protocol Sodium Chloride (Normal Saline) 500 mls @ 500 mls/hr IV ONETIME ONE Stop: 02/24/21 17:29 Last Admin: 02/24/21 16:27 Dose: 500 mls/hr Documented by: Dextrose/Water (Dextrose 5% In Water) 1,000 mls @ 200 mls/hr IV ONETIME ONE Stop: 02/24/21 21:29 Labetalol HCl (Labetalol 20 Mg/4 Ml Syringe) 5 mg IVPUSH Q5M PRN PRN Reason: SBP over 160 OR DBP over 95 Loperamide HCl (Loperamide 1 Mg/7.5 Ml 7.5 Ml Ud Cup) 2 mg FTUBE ASDIRECTED PRN PRN Reason: LOOSE STOOLS Lorazepam (Lorazepam 2 Mg/Ml Sdv) 0.5 mg IVPUSH Q2H PRN PRN Reason: anxiety/agitation Last Admin: 02/24/21 04:12 Dose: 0.5 mg Documented by: Metoclopramide HCl (Metoclopramide 10 Mg/2 Ml Sdv) 10 mg IVPUSH Q6H PRN PRN Reason: NAUSEA NOT CONTROL BY ZOFRAN Last Admin: 02/23/21 22:04 Dose: 10 mg Documented by: Naloxone HCl (Naloxone 0.4 Mg/Ml Sdv) 0.1 mg IV ASDIRECTED PRN PRN Reason: decreased respiratory rate Scopalomine Patch (Placement Check) 1 each TOP DAILY [facility] Last Admin: 02/24/21 09:01 Dose: Not Given Documented by: Ondansetron HCl (Ondansetron 4 Mg/2 Ml Sdv) 4 mg IVPUSH Q4H PRN PRN Reason: Nausea Last Admin: 02/24/21 00:06 Dose: 4 mg Documented by: Pantoprazole Sodium (Pantoprazole 40 Mg Vial) 40 mg IV Q24H [facility] Last Admin: 02/24/21 16:03 Dose: 40 mg Documented by: Promethazine HCl (Promethazine 25 Mg/Ml Sdv) 12.5 mg IM Q6H PRN PRN Reason: Nausea Sodium Chloride (Sodium Chloride 0.9% 10 Ml Syringe) 10 ml FLUSH ONETIME PRN PRN Reason: PER RADIOLOGY PROTOCOL Temazepam (Temazepam 15 Mg Cap) 15 - 30 mg PO BEDTIME PRN PRN Reason: Insomnia Last Admin: 02/24/21 00:06 Dose: 30 mg Documented by: Vitamin A (Vitamin A 10,000 Unit Cap) 40,000 units PO Q24H [facility] Last Admin: 02/23/21 14:47 Dose: 40,000 units Documented by: Vitamin A (Vitamin A 10,000 Unit Cap) 30,000 units PO BIDMEALS [facility] Last Admin: 02/24/21 08:50 Dose: Not Given Documented by: Discontinued Medications Acetaminophen (Acetaminophen 325 Mg Tab) 650 mg PO Q4H PRN PRN Reason: Pain Last Admin: 02/19/21 13:46 Dose: 650 mg Documented by: Albuterol/Ipratropium (Albuterol/Ipratropium 3.0-0.5 Mg/3 Ml Neb Soln) 3 ml INH Q4H PRN PRN Reason: BREATHING Atenolol (Atenolol 25 Mg Tab) 25 mg PO BID [facility] Stop: 02/16/21 21:01 Last Admin: 02/16/21 20:21 Dose: 25 mg Documented by: Atenolol (Atenolol 25 Mg Tab) 25 mg PO ONETIME ONE Stop: 02/17/21 06:31 Last Admin: 02/17/21 06:27 Dose: 25 mg Documented by: Atenolol (Atenolol 25 Mg Tab) 25 mg PO BID [facility] Stop: 02/19/21 22:00 Last Admin: 02/19/21 20:42 Dose: 25 mg Documented by: Atenolol (Atenolol 25 Mg Tab) 25 mg PO ONETIME ONE Stop: 02/20/21 07:01 Last Admin: 02/20/21 08:17 Dose: 25 mg Documented by: Bisacodyl (Bisacodyl 5 Mg Tab) 10 mg PO BID [facility] Last Admin: 02/22/21 20:12 Dose: 10 mg Documented by: Bupivacaine HCl (Bupivacaine 0.5% 50 Ml Mdv) Confirm Administered Dose 50 ml .ROUTE .STK-MED ONE Stop: 02/17/21 06:45 Last Admin: 02/17/21 08:15 Dose: 20 ml Documented by: Bupivacaine HCl (Bupivacaine 0.5% 50 Ml Mdv) Confirm Administered Dose 50 ml .ROUTE .STK-MED ONE Stop: 02/20/21 06:51 Bupivacaine HCl (Bupivacaine 0.5% 50 Ml Mdv) 10 ml INJECT .STK-MED ONE Stop: 02/20/21 09:41 Last Admin: 02/20/21 09:40 Dose: 10 ml Documented by: Bupivacaine HCl/Epinephrine Bitart (Bupivacaine 0.5%/Epinephrine 1:200,000 50 Ml Mdv) Confirm Administered Dose 50 ml .ROUTE .STK-MED ONE Stop: 02/24/21 05:43 Bupivacaine HCl/Epinephrine Bitart (Bupivacaine 0.5%/Epinephrine 1:200,000 50 Ml Mdv) 50 ml INJECT .ST-MED ONE Stop: 02/24/21 06:37 Last Admin: 02/24/21 06:36 Dose: 50 ml Documented by: Calcium Gluconate (Calcium Gluconate 10% 1 Gm/10 Ml Sdv) 1 gm IVPUSH ONETIME PRN PRN Reason: SX MAGNESIUM TOXICITY Stop: 02/20/21 23:59 Calcium Gluconate (Calcium Gluconate 10% 1 Gm/10 Ml Sdv) 1 gm IVPUSH ONETIME ONE Stop: 02/24/21 13:46 Last Admin: 02/24/21 13:30 Dose: 1 gm Documented by: Calcium Gluconate (Calcium Gluconate 10% 1 Gm/10 Ml Sdv) 1 gm IVPUSH ONETIME ONE Stop: 02/24/21 16:15 Last Admin: 02/24/21 16:32 Dose: 1 gm Documented by: Ropivacaine 45 ml/Dexamethasone 8 mg/Epinephrine HCl 0.4 mg/ Sodium Chloride 32.6 ml 0 ml NERVRT ASDIRECTED [facility] Last Admin: 02/20/21 08:55 Dose: 80 syringe Documented by: Cyanocobalamin (Cyanocobalamin (Vitamin B12) 1,000 Mcg/Ml Sdv) 1,000 mcg IM ONETIME ONE Stop: 02/16/21 06:31 Last Admin: 02/16/21 07:04 Dose: 1,000 mcg Documented by: Cyanocobalamin (Cyanocobalamin (Vitamin B12) 1,000 Mcg/Ml Sdv) 1,000 mcg IM ONETIME ONE Stop: 02/22/21 09:01 Last Admin: 02/22/21 09:02 Dose: 1,000 mcg Documented by: Cyclobenzaprine HCl (Cyclobenzaprine 10 Mg Tab) 10 mg PO Q8H PRN PRN Reason: Muscle Spasm - Painful Last Admin: 02/23/21 20:06 Dose: 10 mg Documented by: Dexamethasone (Dexamethasone 4 Mg/Ml Sdv) Confirm Administered Dose 4 mg .ROUTE .STK-MED ONE Stop: 02/20/21 06:56 Dexamethasone (Dexamethasone 4 Mg/Ml Sdv) Confirm Administered Dose 4 mg .ROUTE .STK-MED ONE Stop: 02/24/21 05:38 Dextrose/Water (50% Dextrose In Water 50 Ml Syringe) 50 ml IVPUSH ONETIME ONE Stop: 02/24/21 13:46 Last Admin: 02/24/21 13:20 Dose: 50 ml Documented by: Dextrose/Water (50% Dextrose In Water 50 Ml Syringe) 50 ml IVPUSH ONETIME ONE Stop: 02/24/21 16:15 Last Admin: 02/24/21 16:25 Dose: 50 ml Documented by: Docusate Sodium (Docusate Sodium 100 Mg Cap) 100 mg PO BID MAYUR Last Admin: 02/23/21 21:57 Dose: Not Given Documented by: Enoxaparin Sodium (Enoxaparin 40 Mg/0.4 Ml Syringe) 40 mg SUBCUT Q24H [facility] Ephedrine Sulfate (Ephedrine 50 Mg/Ml Sdv) Confirm Administered Dose 50 mg .ROUTE .STK-MED ONE Stop: 02/24/21 05:41 Ephedrine Sulfate (Ephedrine 50 Mg/Ml Sdv) Confirm Administered Dose 50 mg .ROUTE .STK-MED ONE Stop: 02/24/21 06:55 Fentanyl (Fentanyl 100 Mcg/2 Ml Sdv) Confirm Administered Dose 100 mcg .ROUTE .STK-MED ONE Stop: 02/16/21 09:45 Fentanyl (Fentanyl 100 Mcg/2 Ml Sdv) Confirm Administered Dose 100 mcg .ROUTE .STK-MED ONE Stop: 02/17/21 07:14 Fentanyl (Fentanyl 250 Mcg/5 Ml Sdv) Confirm Administered Dose 250 mcg .ROUTE .STK-MED ONE Stop: 02/20/21 06:58 Fentanyl (Fentanyl 250 Mcg/5 Ml Sdv) Confirm Administered Dose 250 mcg .ROUTE .STK-MED ONE Stop: 02/20/21 09:39 Fentanyl (Fentanyl 100 Mcg/2 Ml Sdv) 50 mcg IVPUSH ONETIME ONE Stop: 02/20/21 10:47 Last Admin: 02/20/21 10:50 Dose: 50 mcg Documented by: Fentanyl (Fentanyl 250 Mcg/5 Ml Sdv) Confirm Administered Dose 250 mcg .ROUTE .STK-MED ONE Stop: 02/24/21 05:38 Furosemide (Furosemide 20 Mg/2 Ml Vial) 20 mg IV ONETIME ONE Stop: 02/17/21 10:01 Last Admin: 02/17/21 09:47 Dose: 20 mg Documented by: Furosemide (Furosemide 20 Mg/2 Ml Vial) 20 mg IV BID [facility] Last Admin: 02/20/21 08:18 Dose: 20 mg Documented by: Furosemide (Furosemide 20 Mg/2 Ml Vial) 20 mg IVPUSH ONETIME ONE Stop: 02/21/21 09:01 Last Admin: 02/21/21 08:32 Dose: 20 mg Documented by: Furosemide (Furosemide 20 Mg/2 Ml Vial) 20 mg IV ONETIME ONE Stop: 02/22/21 08:01 Last Admin: 02/22/21 08:02 Dose: 20 mg Documented by: Furosemide (Furosemide 20 Mg/2 Ml Vial) 20 mg IVPUSH BID [facility] Stop: 02/23/21 23:59 Last Admin: 02/23/21 22:04 Dose: 20 mg Documented by: Furosemide (Furosemide 20 Mg/2 Ml Vial) 20 mg IVPUSH NOW ONE Stop: 02/24/21 13:46 Last Admin: 02/24/21 13:27 Dose: 20 mg Documented by: Furosemide (Furosemide 100 Mg/10 Ml Sdv) 100 mg IVPUSH NOW ONE Stop: 02/24/21 16:36 Last Admin: 02/24/21 16:44 Dose: 100 mg Documented by: Glycopyrrolate (Glycopyrrolate 0.2 Mg/Ml 2 Ml Sdv) 0.4 mg IVPUSH ONETIME ONE Stop: 02/16/21 07:16 Last Admin: 02/16/21 09:48 Dose: 0.4 mg Documented by: Glycopyrrolate (Glycopyrrolate 0.2 Mg/Ml 5 Ml Mdv) Confirm Administered Dose 1 mg .ROUTE .STK-MED ONE Stop: 02/20/21 06:56 Glycopyrrolate (Glycopyrrolate 0.2 Mg/Ml 5 Ml Mdv) Confirm Administered Dose 1 mg .ROUTE .STK-MED ONE Stop: 02/24/21 05:38 Heparin Sodium (Porcine) (Heparin Sodium 100 Units/Ml 5 Ml Syringe) Confirm Administered Dose 1,000 units .ROUTE .ST-MED ONE Stop: 02/17/21 06:45 Last Admin: 02/17/21 08:10 Dose: 1,000 units Documented by: Heparin Sodium (Porcine) (Heparin Sodium 100 Units/Ml 5 Ml Syringe) Confirm Administered Dose 500 units .ROUTE .ST-MED ONE Stop: 02/22/21 11:38 Last Admin: 02/22/21 11:42 Dose: Not Given Documented by: Heparin Sodium (Porcine) (Heparin Sodium 5,000 Units/Ml Vial) Confirm Administered Dose 5,000 units .ROUTE .[facility] ONE Stop: 02/24/21 07:40 Last Admin: 02/24/21 09:05 Dose: Not Given Documented by: Hydrocortisone Sodium Succinate (Hydrocortisone Sodium Succinate 100 Mg/2 Ml Sdv) 100 mg IVPUSH ONETIME ONE Stop: 02/24/21 10:31 Last Admin: 02/24/21 10:37 Dose: 100 mg Documented by: Hydroxyzine HCl (Hydroxyzine Hcl 100 Mg/2 Ml Sdv) 100 mg IM ONETIME ONE Stop: 02/20/21 10:46 Last Admin: 02/20/21 10:50 Dose: 100 mg Documented by: Lactated Ringer's (Ringers, Lactated) 1,000 mls @ 999 mls/hr IV ASDIRECTED ONE Stop: 02/15/21 07:15 Last Admin: 02/16/21 07:05 Dose: 999 mls/hr Documented by: Multivitamins/Minerals 10 ml/Thiamine HCl 200 mg/ Chromium/Copper/Manganese/Seleni/Zn 1 ml/ Lactated Ringer's 1,013 mls @ 500 mls/hr IV ONETIME ONE Stop: 02/16/21 09:16 Lactated Ringer's (Ringers, Lactated) 1,000 mls @ 500 mls/hr IV ASDIRECTED ONE Stop: 02/15/21 09:14 Last Admin: 02/16/21 11:34 Dose: Not Given Documented by: Potassium Chloride 20 meq/ (Premix) 100 mls @ 50 mls/hr IV ONETIME ONE Stop: 02/16/21 09:29 Last Admin: 02/16/21 07:19 Dose: 50 mls/hr Documented by: Sodium Chloride (Normal Saline) Confirm Administered Dose 500 mls @ as directed .ROUTE .[facility] ONE Stop: 02/16/21 09:49 Dextrose/Lactated Ringer's (Dextrose 5%-Lactated Ringers) 1,000 mls @ 125 mls/hr IV ASDIRECTED [facility] Stop: 02/17/21 11:30 Last Admin: 02/17/21 10:17 Dose: 125 mls/hr Documented by: Cefazolin Sodium/Dextrose 2 gm (/ Premix) 50 mls @ 100 mls/hr IV ONETIME ONE Stop: 02/17/21 08:29 Last Admin: 02/17/21 07:35 Dose: 100 mls/hr Documented by: Potassium Chloride 20 meq/ (Premix) 100 mls @ 50 mls/hr IV Q2H [facility] Stop: 02/17/21 00:59 Last Admin: 02/17/21 01:33 Dose: 50 mls/hr Documented by: Potassium Phosphate 15 mmol/ (Premix) 250 mls @ 85 mls/hr IV Q3H [facility] Stop: 02/16/21 20:57 Last Admin: 02/16/21 20:19 Dose: 85 mls/hr Documented by: Sodium Chloride (Normal Saline) 500 mls @ 500 mls/hr IV .BOLUS ONE Stop: 02/16/21 23:14 Last Admin: 02/16/21 23:22 Dose: 500 mls/hr Documented by: Lidocaine HCl (Xylocaine-Mpf 1%) Confirm Administered Dose 2 mls @ as directed .ROUTE .[facility] ONE Stop: 02/17/21 07:39 Dextrose/Lactated Ringer's (Dextrose 5%-Lactated Ringers) 1,000 mls @ 25 mls/hr IV ASDIRECTED [facility] Albumin Human (Albumin 25%) 25 gm in 100 mls @ 25 mls/hr IV Q24H [facility] Stop: 02/20/21 13:59 Last Admin: 02/20/21 12:08 Dose: Not Given Documented by: Fat Emulsion Intravenous (Intralipid 20%) 100 mls @ 8.3 mls/hr IV Q24H [facility] Stop: 02/20/21 06:00 Last Admin: 02/19/21 16:19 Dose: 8.3 mls/hr Documented by: Zinc 1 ml/ Multivitamins/Minerals 10 ml/ Amino Ac/Electrol/Dextrose/Calcium 1,011 mls @ 100 mls/hr IV .BY DURATION [facility] Stop: 02/19/21 13:55 Last Admin: 02/18/21 18:40 Dose: 100 mls/hr Documented by: Amino Ac/Electrol/Dextrose/Calcium (Clinimix E 5/15) 1,000 mls @ 100 mls/hr IV .BY DURATION [facility] Stop: 02/19/21 13:55 Last Admin: 02/19/21 04:24 Dose: 100 mls/hr Documented by: Magnesium Sulfate 2 gm/ Premix 50 mls @ 25 mls/hr IV Q6H [facility] Stop: 02/20/21 04:59 Last Admin: 02/20/21 03:05 Dose: 25 mls/hr Documented by: Potassium Phosphate 25 mmole/ (Sodium Chloride) 108.3333 mls @ 21 mls/hr IV ONETIME ONE Stop: 02/18/21 16:09 Last Admin: 02/18/21 11:15 Dose: 21 mls/hr Documented by: Potassium Phosphate 25 mmole/ (Sodium Chloride) 108.3333 mls @ 22 mls/hr IV ONETIME ONE Stop: 02/19/21 13:55 Last Admin: 02/19/21 09:21 Dose: 22 mls/hr Documented by: Potassium Phosphate 20 mmole/ (Sodium Chloride) 106.6667 mls @ 26 mls/hr IV ONETIME ONE Stop: 02/19/21 19:06 Last Admin: 02/19/21 15:40 Dose: 26 mls/hr Documented by: Multivitamins/Minerals 10 ml/Zinc 1 ml/ Amino Acids/Dextrose 1,011 mls @ 100 mls/hr IV .BY DURATION [facility] Last Admin: 02/19/21 14:22 Dose: 100 mls/hr Documented by: Amino Acids/Dextrose (Clinimix 5/15) 1,000 mls @ 100 mls/hr IV .BY DURATION [facility] Last Admin: 02/20/21 00:27 Dose: 100 mls/hr Documented by: Ketamine HCl 50 mg/ Sodium (Chloride) 50 mls @ 17.7 mls/hr IV ASDIRECTED [facility] Magnesium Sulfate 2.7 gm/ (Sodium Chloride) 105.4 mls @ 210.8 mls/hr IV ASDIRECTED [facility] Magnesium Sulfate 2.8 gm/ (Sodium Chloride) 255.6 mls @ 31.95 mls/hr IV ONETIME ONE Stop: 02/20/21 17:29 Last Admin: 02/20/21 11:52 Dose: 31.95 mls/hr Documented by: Cefoxitin Sodium 2 gm/ Sodium (Chloride) 50 mls @ 100 mls/hr IV ONETIME ONE Stop: 02/20/21 09:29 Last Admin: 02/20/21 08:18 Dose: 100 mls/hr Documented by: Linezolid (Zyvox) Confirm Administered Dose 300 mls @ as directed .ROUTE .STK- MED ONE Stop: 02/20/21 06:51 Multivitamins/Minerals 10 ml/Zinc 1 ml/ Amino Acids/Dextrose 1,011 mls @ 100 mls/hr IV .BY DURATION [facility] Amino Acids/Dextrose (Clinimix 5/15) 1,000 mls @ 100 mls/hr IV .BY DURATION [facility] Multivitamins/Minerals 10 ml/Zinc 1 ml/ Amino Acids/Dextrose 2,011 mls @ 100 mls/hr IV ONETIME ONE Stop: 02/21/21 08:36 Last Admin: 02/20/21 13:21 Dose: 100 mls/hr Documented by: Dextrose/Lactated Ringer's (Dextrose 5%-Lactated Ringers) 1,000 mls @ 50 mls/hr IV ASDIRECTED [facility] Last Admin: 02/23/21 07:31 Dose: 50 mls/hr Documented by: Cefoxitin Sodium 2 gm/ Sodium (Chloride) 50 mls @ 100 mls/hr IV Q6H [facility] Stop: 02/21/21 14:29 Last Admin: 02/21/21 14:38 Dose: 100 mls/hr Documented by: Albumin Human (Albumin 25%) 25 gm in 100 mls @ 25 mls/hr IV Q24H [facility] Stop: 02/20/21 23:59 Last Admin: 02/20/21 20:58 Dose: 25 mls/hr Documented by: Multivitamins/Minerals 10 ml/Zinc 1 ml/ Amino Acids/Dextrose 1,011 mls @ 40 mls/hr IV .BY DURATION [facility] Stop: 02/22/21 08:55 Last Admin: 02/21/21 09:54 Dose: 40 mls/hr Documented by: Amino Acids/Dextrose (Clinimix 5/15) 1,000 mls @ 40 mls/hr IV .BY DURATION [facility] Stop: 02/22/21 08:55 Sodium Chloride (Normal Saline) 75 mls @ 3 mls/sec IV ONETIME ONE Stop: 02/24/21 04:24 Lactated Ringer's (Ringers, Lactated) 500 mls @ 999 mls/hr IV ASDIRECTED [facility] Last Admin: 02/24/21 05:16 Dose: 999 mls/hr Documented by: Piperacillin Sod/Tazobactam (Sod 4.5 gm/ Sodium Chloride) 100 mls @ 100 mls/hr IV ONETIME ONE Stop: 02/24/21 06:17 Last Admin: 02/24/21 05:28 Dose: 100 mls/hr Documented by: Sodium Chloride (Normal Saline) Confirm Administered Dose 20 mls @ as directed .ROUTE .STK-MED ONE Stop: 02/24/21 05:41 Lactated Ringer's (Ringers, Lactated) Confirm Administered Dose 1,000 mls @ as directed .ROUTE .STK-MED ONE Stop: 02/24/21 06:39 Sodium Chloride (Normal Saline) Confirm Administered Dose 10 mls @ as directed .ROUTE .STK-MED ONE Stop: 02/24/21 06:41 Sodium Chloride (Normal Saline) Confirm Administered Dose 10 mls @ as directed .ROUTE .STK-MED ONE Stop: 02/24/21 06:55 Norepinephrine Bitartrate 4 mg (/ Dextrose/Water) 254 mls @ 7.62 mls/hr IV TITRATE [facility]; Protocol Stop: 02/24/21 14:30 Last Infusion: 02/24/21 09:32 Dose: 12 mcg/min, 45.72 mls/hr Documented by: Sodium Chloride (Normal Saline) 1,000 mls @ 999 mls/hr IV ASDIRECTED [facility] Stop: 02/24/21 11:16 Last Admin: 02/24/21 10:28 Dose: 999 mls/hr Documented by: Sodium Chloride (Normal Saline) 500 mls @ 500 mls/hr IV ASDIRECTED [facility] Stop: 02/24/21 15:16 Last Admin: 02/24/21 14:23 Dose: 500 mls/hr Documented by: Insulin Human Regular (Insulin Regular, Human 100 Units/Ml 3 Ml Vial) 10 unit IVPUSH ONETIME ONE Stop: 02/24/21 13:46 Last Admin: 02/24/21 13:22 Dose: 10 units Documented by: Insulin Human Regular (Insulin Regular, Human 100 Units/Ml 3 Ml Vial) 10 unit IVPUSH ONETIME ONE Stop: 02/24/21 16:15 Last Admin: 02/24/21 16:30 Dose: 10 units Documented by: Iopamidol (Iopamidol 612 Mg/Ml 50 Ml Sdv) 50 ml PO ASDIRECTED [facility] Stop: 02/21/21 02:05 Last Admin: 02/21/21 02:18 Dose: 50 ml Documented by: Iopamidol (Iopamidol 612 Mg/Ml 100 Ml Bottle) 100 ml IV . DIRECTED ONE Stop: 02/24/21 05:01 Ketamine HCl (Ketamine 500 Mg/5 Ml Mdv) 29 mg IV ASDIRECTED [facility] Lidocaine/Epinephrine (Lidocaine 1% With Epinephrine 1:100,000 50 Ml Mdv) Confirm Administered Dose 50 ml .ROUTE .STK-MED ONE Stop: 02/17/21 06:45 Last Admin: 02/17/21 08:15 Dose: 20 ml Documented by: Lidocaine/Epinephrine (Lidocaine 1% With Epinephrine 1:100,000 50 Ml Mdv) Confirm Administered Dose 50 ml .ROUTE .STK-MED ONE Stop: 02/20/21 06:51 Lidocaine/Epinephrine (Lidocaine 1% With Epinephrine 1:100,000 50 Ml Mdv) 10 ml INJECT .STK-MED ONE Stop: 02/20/21 09:41 Last Admin: 02/20/21 09:40 Dose: 10 ml Documented by: Lorazepam (Lorazepam 2 Mg/Ml Sdv) 0.25 mg IVPUSH ONETIME [facility] Stop: 02/24/21 05:28 Last Admin: 02/24/21 05:27 Dose: 0.25 mg Documented by: Magnesium Hydroxide (Magnesium Hydroxide 400 Mg/5 Ml Susp 30 Ml Cup) 30 ml PO ONETIME ONE Stop: 02/22/21 08:01 Last Admin: 02/22/21 08:01 Dose: 30 ml Documented by: Meropenem (Meropenem 500 Mg Sdv) Confirm Administered Dose 500 mg .ROUTE .STK- MED ONE Stop: 02/20/21 06:51 Meropenem (Meropenem 500 Mg Sdv) 500 mg IRR .STK-MED ONE Stop: 02/20/21 09:46 Last Admin: 02/20/21 09:45 Dose: 500 mg Documented by: Meropenem (Meropenem 500 Mg Sdv) Confirm Administered Dose 500 mg .ROUTE .STK- MED ONE Stop: 02/24/21 06:41 Meropenem (Meropenem 500 Mg Sdv) 500 mg IRR .STK-MED ONE Stop: 02/24/21 06:44 Last Admin: 02/24/21 06:43 Dose: 500 mg Documented by: Metoclopramide HCl (Metoclopramide 10 Mg/2 Ml Sdv) 10 mg IVPUSH Q6H PRN PRN Reason: STOMACH Midazolam HCl (Midazolam 1 Mg/Ml 2 Ml Sdv) Confirm Administered Dose 2 mg .ROUTE .STK-MED ONE Stop: 02/17/21 07:14 Neostigmine Methylsulfate (Neostigmine Methylsulfate 1 Mg/Ml 5 Ml Syringe) Confirm Administered Dose 5 mg .ROUTE .STK-MED ONE Stop: 02/20/21 06:56 Neostigmine Methylsulfate (Neostigmine Methylsulfate 1 Mg/Ml 5 Ml Syringe) Confirm Administered Dose 5 mg .ROUTE .STK-MED ONE Stop: 02/24/21 05:38 Ondansetron HCl (Ondansetron 4 Mg/2 Ml Sdv) Confirm Administered Dose 4 mg .ROUTE .STK-MED ONE Stop: 02/20/21 06:56 Ondansetron HCl (Ondansetron 4 Mg/2 Ml Sdv) Confirm Administered Dose 4 mg .ROUTE .STK-MED ONE Stop: 02/24/21 05:38 Pantoprazole Sodium (Pantoprazole 40 Mg Vial) 40 mg IVPUSH Q24H [facility] Last Admin: 02/21/21 14:38 Dose: 40 mg Documented by: Pantoprazole Sodium (Pantoprazole 40 Mg Delayed-Release Granules 1 Packet) 40 mg PO Q24H [facility] Last Admin: 02/23/21 17:45 Dose: 40 mg Documented by: Phenylephrine HCl (Phenylephrine 1% 10 Mg/Ml Sdv) Confirm Administered Dose 10 mg .ROUTE .STK-MED ONE Stop: 02/24/21 05:41 Phenylephrine HCl (Phenylephrine 1% 10 Mg/Ml Sdv) Confirm Administered Dose 10 mg .ROUTE .STK-MED ONE Stop: 02/24/21 07:11 Piperacillin Sod/Tazobactam Sod (Piperacillin/Tazobactam 4.5 Gm Vial) Confirm Administered Dose 4.5 gm .ROUTE .STK-MED ONE Stop: 02/24/21 05:19 Last Admin: 02/24/21 05:33 Dose: Not Given Documented by: Propofol (Propofol 200 Mg/20 Ml Sdv) Confirm Administered Dose 200 mg .ROUTE .STK-MED ONE Stop: 02/16/21 09:45 Propofol (Propofol 200 Mg/20 Ml Sdv) Confirm Administered Dose 200 mg .ROUTE .STK-MED ONE Stop: 02/17/21 07:14 Propofol (Propofol 200 Mg/20 Ml Sdv) Confirm Administered Dose 200 mg .ROUTE .STK-MED ONE Stop: 02/20/21 06:56 Propofol (Propofol 200 Mg/20 Ml Sdv) Confirm Administered Dose 200 mg .ROUTE .STK-MED ONE Stop: 02/24/21 05:38 Rocuronium [place] (Rocuronium 50 Mg/5 Ml Vial) Confirm Administered Dose 50 mg .ROUTE .STK-MED ONE Stop: 02/20/21 06:56 Rocuronium [place] (Rocuronium 50 Mg/5 Ml Vial) Confirm Administered Dose 50 mg .ROUTE .STK-MED ONE Stop: 02/24/21 05:38 Scopolamine (Scopolamine 1.5 Mg Transdermal Patch) 1.5 mg TRDERM Q72H ONE Stop: 02/24/21 01:43 Last Admin: 02/24/21 02:01 Dose: 1.5 mg Documented by: Sodium Bicarbonate (Sodium Bicarbonate 8.4% 50 Meq/50 Ml Syringe) 150 meq IV ONETIME ONE Stop: 02/24/21 16:17 Sodium Bicarbonate (Sodium Bicarbonate 8.4% 50 Meq/50 Ml Syringe) Confirm Administered Dose 50 meq .ROUTE .STK-MED ONE Stop: 02/24/21 16:39 Sodium Polystyrene Sulfonate (Sodium Polystyrene Sulfonate 15 Gm/60 Ml Susp 60 Ml Bot) 90 gm RECTAL NOW ONE Stop: 02/24/21 16:14 Succinylcholine Chloride (Succinylcholine 200 Mg/10 Ml Mdv) Confirm Administered Dose 200 mg .ROUTE .STK-MED ONE Stop: 02/20/21 06:56 Succinylcholine Chloride (Succinylcholine 200 Mg/10 Ml Mdv) Confirm Administered Dose 200 mg .ROUTE .STK-MED ONE Stop: 02/24/21 05:38 Tramadol HCl (Tramadol 50 Mg Tab) 50 mg PO Q6H PRN PRN Reason: PAIN Last Admin: 02/19/21 20:41 Dose: 50 mg Documented by: - Exam Quality Assessment: Reports: Supplemental Oxygen General: Reports: No Acute Distress, Sedated. Denies: Alert HEENT: Reports: Pupils Equal Lungs: Denies: Normal Respiratory Effort (Tachypneic), Crackles, Wheezing Cardiovascular: Reports: Regular Rhythm, Tachycardia GI/Abdominal Exam: Soft, No Distention Extremities: No Pedal Edema. No: Increased Warmth Skin: Reports: Warm, Dry Psy/Mental Status: Denies: Alert, Agitated
[2021-02-24 17:16] VITALS: BP 90/33
[2021-02-24] MEDS ORDERED: Hydrocortisone Sodium Succinate 100 MG/2 ML SDV IVPUSH SCH (18:00)
[2021-02-25] MEDS ORDERED: Vasopressin 40 UNITS in Dextrose 5% in Water 100 ML IV SCH ×2 (04:00)
[2021-02-25] MEDS ORDERED: Enoxaparin 40 MG/0.4 ML Syringe SUBCUT SCH (09:00)
--- NOTE | 2021-02-26 09:06 | CR ---
CHEST: Portable 02/24/2021 at 8:42 AM CLINICAL HISTORY:Intubation COMPARISON:2013 FINDINGS: There is less than optimal inspiration. Endotracheal tube is seen approximately 4 cm in the joe. There is a left subclavian catheter. Tip is in the superior vena cava atrial junction region. There are some streaky density in the perihilar regions bilaterally which is likely atelectasis. Impression: Limited study. Endotracheal tube and left subclavian catheter in good position Patchy bibasal streaky opacity, likely atelectasis
--- NOTE | 2021-02-26 09:35 | OR ---
DATE OF PROCEDURE: 02/24/2021 SURGEON: Be Watt MD PROCEDURES: 1. Exploratory laparotomy. 2. Resection of the jejunal-jejunal anastomosis complex, which includes anastomosis of the Marshal-en-Y limb with the common channel and the biliopancreatic limb with the common channel. 3. Removal of gross leander stool material. 4. Placement of two 10 flat Bismark-Monae within the abdomen. 5. Placement of a 10 round drain within the subcutaneous tissues. FINDINGS: 1. Gross stool consistent with perforation of anastomosis. 2. Normal gastric feeding tube in place without evidence of leak or failure. 3. Diffuse patulous ischemia throughout the entire small bowel (not located in a specific vascular distribution). 4. Diffuse ischemia of all tissues in the abdomen consistent with systemic shock. COMPLICATIONS: None. RN ED: None. ANESTHESIA: General. INDICATIONS: A 60-year-old female who developed septic shock. The patient was taken in a stat condition within minutes of the surgeon being contacted. RISKS: Risks were unable to be explained due to the stat nature of the condition. In addition, the patient was unresponsive and immediately intubated. The patient most likely underwent jejunal-jejunal anastomosis resection, although no operative report is available; however, progress notes indicate this is most likely the status. PROCEDURE IN DETAIL: The patient was placed in supine position. The previous midline incision was made, and this would be opened slightly larger, approximately 2 cm larger during the case. There was a large amount of gas noted when entering the peritoneum. Stool was immediately encountered. The exploratory laparotomy was commenced. The bowel was moved extracorporeally. The colon was inspected without abnormality. The gastrostomy feeding tube was inspected first. This was noted to be viable without evidence of leak. No leaks noted with fluid challenges. The patient recently had received tube feedings and none was noted within the abdomen. What was noted was a large amount of leander stool. This was removed, suctioned, and irrigated. This was also cultured. The patient would have multiple liters of irrigation used in the abdomen including a meropenem type irrigation, which was held within the abdomen for a few minutes. Looking at the small bowel itself, the patient had diffuse ischemia throughout the entire small bowel. This was patulous in nature and most consistent with systemic shock, which was consistent with the Anesthesia's discussion and findings. This was not noted in any specific distribution such as to suggest an occlusion of specific artery such as the superior mesenteric artery, etc. After jejunal-jejunal anastomosis which consisted of 2 separate anastomoses, both anastomoses appeared to have ischemic events associated with them. The etiology of the perforation would not be determined at this time and most likely came from the Marshal-en-Y to common channel anastomosis. However, due to the septic shock concern, both were resected. Purple load staplers were used to resect the small bowel and the mesentery was resected with vascular loads. These were subsequently transected. Unfortunately, there was very minimal bleeding noted after resection of these concerning due to the septic nature. What minimal bleeding was left was controlled with electrocautery. A [id number] functional end-to-end anastomosis would be performed between the Marshal-en-Y channel and the common channel. This was performed by making a [id number] anastomosis. Defect was created in the antimesenteric side. A 60 mm load stapler was used. Allis clamps were used to approximate the defect and subsequently transect it. This was inspected. No leaks, no abnormalities were noted. A stitch had been placed distal to the keep the orientation proper, and the antimesenteric defect was also closed with a 3-0 Vicryl suture. The biliary channel to the Marshal-en-Y limb was performed in an end-to-side anastomosis also using a defect, 60 mm purple stapler in transection. This was also inspected for potential areas for leak. None was noted. The mesenteric defect was also closed. Prior to anastomotic creation, the abdomen had been thoroughly irrigated as described above. The mesenteric defect was also closed. These were then placed within the abdomen. Two 10 flat Bismark-Joyner drains were placed. The fascia was closed with #1 Vicryl suture. They were also irrigated again multiple times with meropenem-containing solution. The skin was closed over a 10 round drain. Dressings were applied. The patient remained guardedly stable throughout the entire procedure. Be Watt MD /[id number] ADRIANNE
--- NOTE | 2021-03-01 13:28 | OR ---
DATE OF PROCEDURE: 02/16/2021 SURGEON: Juve Alvarez MD PREOPERATIVE DIAGNOSES: Persistent nausea, vomiting, dehydration, and severe malnutrition, status post Marshal-en-Y gastric bypass. POSTOPERATIVE DIAGNOSES: 1. Persistent nausea, vomiting, dehydration, and severe malnutrition, status post Marshal-en- Y gastric bypass. 2. Normal upper gastrointestinal endoscopic examination, status post Marshal-en-Y gastric bypass. OPERATIVE PROCEDURE: Upper gastrointestinal endoscopy. ANESTHESIA: IV sedation. INDICATION FOR PROCEDURE: A 60-year-old female status post Marshal-en-Y gastric bypass, presenting with ongoing problems with nausea, vomiting, dehydration, and clinically evidenced severe malnutrition. Plan is to proceed with upper GI endoscopy for diagnostic purposes. Potential risks including bleeding and perforation were discussed, and the patient wishes to proceed. DETAILS OF PROCEDURE: The patient was taken to the operating room and placed in a left lateral decubitus position. IV sedation was administered after which the upper GI endoscope was passed orally through the length of the esophagus into the gastric pouch and from there through the gastrojejunostomy roughly 20 cm into the Marshal limb. Findings overall were entirely normal. There were no areas of inflammation, stricturing, or, retained food or bile within the examination. Scope was then withdrawn and the procedure then concluded. At this point we will admit the patient for initial hydration and nutritional replenishment. We will initiate that with a Puckett catheter placement tomorrow to initiate IV hyperalimentation and after probably an exploratory laparotomy, which will include placement of gastrostomy tube. Juve Alvarez MD /[id number]
--- NOTE | 2021-03-01 13:44 | OR ---
DATE OF PROCEDURE: 02/17/2021 SURGEON: Juve Alvarez MD PREOPERATIVE DIAGNOSIS: Malnutrition. POSTOPERATIVE DIAGNOSIS: Malnutrition. OPERATIVE PROCEDURE: Placement of double-lumen Puckett catheter ([id number]). ANESTHESIA: IV sedation. INDICATION FOR PROCEDURE: This is a 60-year-old female presenting with ongoing nausea and vomiting with dehydration which initiated the patient undergoing a course of IV hyperalimentation. The plan is to proceed with double-lumen Pukcett catheter placement. Potential risks of the procedure including bleeding, infection, pneumohemothorax, injury to the vasculature, problems with Puckett catheter becoming occluded or infected were all reviewed, and the patient wishes to proceed. DETAILS OF PROCEDURE: The patient was taken to the operating room and placed in a left lateral decubitus position. IV sedation was administered after which the upper chest and neck areas were prepped and draped. The left subclavian area was anesthetized with 1% lidocaine and left subclavian vein cannulated. A guidewire was passed from there into the superior vena cava. Some additional local was then injected where the Puckett catheter will be placed and a small stab wound at the lower end of that area and was tunneled between the original puncture site and at the lower area on the chest wall was then made with a dilator just inside the skin. Catheter was cut such that the tip would lie in the area of the superior vena cava, right atrial junction, and good in and out flow was noted in the two ports. The catheter was sutured external with 2-0 nylon stitch and the original puncture site closed with 4-0 Vicryl subcuticular stitch. Steri- Strips applied. The patient was taken to the recovery room in satisfactory condition. Juve Alvarez MD /[id number]
--- NOTE | 2021-03-01 14:58 | OR ---
DATE OF PROCEDURE: 02/20/2021 SURGEON: Juve Alvarez MD PREOPERATIVE DIAGNOSIS: Postprandial crampy abdominal pain associated with frequent loose bowel movements and evolving malnutrition. POSTOPERATIVE DIAGNOSES: 1. Partial small bowel obstruction at jejunojejunostomy. 2. Peritoneal implant on small bowel mesentery. 3. Incarcerated incisional hernia. 4. Malnutrition. OPERATIVE PROCEDURE: Exploratory laparotomy with: 1. Revision of jejunojejunostomy component of Marshal-en-Y gastric bypass (54537). 2. Excision of peritoneal implant on distal small bowel mesentery (37113). 3. Repair of incarcerated incisional hernia (11590). 4. Placement of tube gastrostomy (73025). 5. Placement of Interceed mesh underneath the incision and adjacent pelvic and abdominal wall to limit recurrent adhesion formation (41224). ANESTHESIA: General. INDICATIONS FOR PROCEDURE: This is a 60-year-old presenting with quite severe malnutrition, status post previous Marshal-en-Y gastric bypass. She has had several weeks or months history of postprandial crampy abdominal pain with frequent loose bowel movements. Plan is to proceed with exploratory laparotomy to see if there is any correctable problem with regard to the gastric bypass as well as placement of tube gastrostomy. Potential risks of the procedure including bleeding, infection, leaks from various GI tract closures, the possibility that may not solve the problem with her gastrointestinal tract symptoms were all discussed along with the remote possibility of cardiopulmonary, septic, or hemorrhagic complications leading to , and the patient wishes to proceed. DETAILS OF PROCEDURE: The patient was taken to the operating room. After general endotracheal anesthesia was induced, a Georges catheter was inserted and the abdomen prepped and draped. A previous midline incision was then reused and carried down through the skin and subcutaneous tissue, and all the way around to that, the patient was noted to have incarcerated incisional hernia containing some preperitoneal fat and omentum that were dissected free along with the peritoneum, and we turned back into the peritoneal cavity. A fairly significant amount of adhesions were then taken down. From the course of dissection in distal Marshal limb, the patient was noted to have a 3 mm nodular implant on the small bowel mesentery. This was excised and sent as a separate specimen. The patient was noted after examination of the small bowel to have a tight angulation of the point where the Marshal limb entered the jejunojejunostomy and also some distortion of the biliopancreatic limb as it entered the anastomosis as well. Given this, decision was made to revise the jejunojejunostomy component of the Marshal-en-Y gastric bypass. The remainder of the small bowel was run, and no additional abnormalities were noted. The 3 components of the jejunojejunostomy were then divided with CLAUDINE gely as was the underlying mesentery attached to the segments of the bowel. GI tract continuity was initiated with a [id number] enteroenterostomy between what had been the distal-most biliopancreatic limb to the proximal-most common limb with some internal firing of the EndoGIA 60 mm stapler. Common opening was then closed transversely with the same stapler, the angles anastomosed, the mesenteric defect approximated with some 3-0 Vicryl stitch and 2- 0 silk stitch respectively. GI tract continuity was then accomplished with anastomosis between what had been the distal most common limb to the small bowel roughly 20 cm distal to the first anastomosis. This was done in an identical manner other than 2 internal firings, one with the 60 mm, one with the 30 mm stapler were placed internally. Otherwise, closure of mesenteric defect suturing was same as for the first anastomosis. Of note, the biliopancreatic limb in this case was 60 cm. The Marshal limb was around 75 mm and the remainder of small bowel as common limb. This measured around 550 cm, i.e., at this point, there was no significant reason for malabsorptive component to the patient's malnutrition with that length of the common limb. At this point, attention was taken to placement of the tube gastrostomy. The mid greater curvature of the stomach was grasped and pulled up against the abdominal wall and the left mid without difficulty. A small stab wound at that level was made in the skin, and an 18-[place] gastrostomy tube was then pulled through the abdominal wall. The limb was retracted. A pursestring stitch of 0 Vicryl stitch at the site chosen for the gastrostomy was then placed and the gastrotomy then made with electrocautery. The balloon catheter placed into the lumen of the stomach, inflated to 10 mL, and the pursestring stitch then tied up. This was used initially to fix the stomach up against the abdominal wall. Three additional stitches of 3-0 Vicryl stomach had been also placed along with tacking of some omentum around the gastrostomy site were reinforced with some fibrin sealant. The tube was sutured to the skin level with a 2-0 nylon stitch. At this point, no further problems were noted intra-abdominally. The abdomen was irrigated with antibiotic-containing saline solution. Interceed mesh was then placed underneath the incision, from there down towards the pelvis where it would help prevent recurrent adhesion formation. The midline fascia was then repaired which included repair of incarcerated incisional hernia. This was done with a #2 Vicryl stitch. Prior to closure, bilateral transversus abdominis plane blocks were placed, and the fascia was anesthetized with 1% lidocaine mixed with Marcaine. The subcutaneous tissue was then approximated with some 3-0 Vicryl stitch deep and gely for the skin. Dressing was applied. The patient was taken to the recovery room in satisfactory condition. Juve Alvarez MD /[id number]
== END 2021-02-24 18:38 | DRG 326 ==
LOC: JP.SDS 05:42 → EDSTATUS 07:15 → JP.MS 11:20 → JP.ICU 02-24 08:29
PROVIDERS: ADMIT Surgery; ATTEND Surgery
PROC: 0DJ08ZZ Inspection of Upper Intestinal Tract, Via Natural or Artificial Opening Endoscopic (ICD-10-PCS; 2021-02-16)
PROC: 02H633Z Insertion of Infusion Device into Right Atrium, Percutaneous Approach (ICD-10-PCS; 2021-02-17)
PROC: 0DH60UZ Insertion of Feeding Device into Stomach, Open Approach (ICD-10-PCS; 2021-02-20)
PROC: 0DB80ZZ Excision of Small Intestine, Open Approach (ICD-10-PCS; 2021-02-20)
PROC: 0DBW0ZZ Excision of Peritoneum, Open Approach (ICD-10-PCS; 2021-02-20)
PROC: 0WQF0ZZ Repair Abdominal Wall, Open Approach (ICD-10-PCS; 2021-02-20)
PROC: 3E0M05Z Introduction of Adhesion Barrier into Peritoneal Cavity, Open Approach (ICD-10-PCS; 2021-02-20)
PROC: XW033N5 Introduction of Meropenem-vaborbactam Anti-infective into Peripheral Vein, Percutaneous Approach, New Technology Group 5 (ICD-10-PCS; principal; 2021-02-24)
PROC: 0DBA0ZZ Excision of Jejunum, Open Approach (ICD-10-PCS; 2021-02-24)
PROC: 3E0336Z Introduction of Nutritional Substance into Peripheral Vein, Percutaneous Approach (ICD-10-PCS; 2021-02-24)
PROC: 3E033XZ Introduction of Vasopressor into Peripheral Vein, Percutaneous Approach (ICD-10-PCS; 2021-02-24)
PROC: 5A1935Z Respiratory Ventilation, Less than 24 Consecutive Hours (ICD-10-PCS; 2021-02-24)
DX: K95.89 Other complications of other bariatric procedure (principal); A41.9 Sepsis, unspecified organism; K63.1 Perforation of intestine (nontraumatic); R65.21 Severe sepsis with septic shock; J96.01 Acute respiratory failure with hypoxia; N17.9 Acute kidney failure, unspecified; K56.609 Unspecified intestinal obstruction, unspecified as to partial versus complete obstruction; K56.7 Ileus, unspecified; K43.0 Incisional hernia with obstruction, without gangrene; K56.600 Partial intestinal obstruction, unspecified as to cause; E46 Unspecified protein-calorie malnutrition; K92.1 Melena; E87.3 Alkalosis; E87.2 Acidosis; K55.9 Vascular disorder of intestine, unspecified; E87.5 Hyperkalemia; H54.7 Unspecified visual loss; I10 Essential (primary) hypertension; K80.20 Calculus of gallbladder without cholecystitis without obstruction; F17.200 Nicotine dependence, unspecified, uncomplicated; E11.9 Type 2 diabetes mellitus without complications; E66.01 Morbid (severe) obesity due to excess calories; E86.0 Dehydration; E55.9 Vitamin D deficiency, unspecified; E60 Dietary zinc deficiency; E50.9 Vitamin A deficiency, unspecified; G47.30 Sleep apnea, unspecified; Z90.49 Acquired absence of other specified parts of digestive tract; Z85.528 Personal history of other malignant neoplasm of kidney; Z88.2 Allergy status to sulfonamides; Z88.8 Allergy status to other drugs, medicaments and biological substances; Z79.899 Other long term (current) drug therapy; Z98.890 Other specified postprocedural states; Z68.37 Body mass index [BMI] 37.0-37.9, adult
CPT/HCPCS: 36415; 51702; 71045; 71045-26; 71250; 74176; 74240; 80048; 80053; 81001; 82607; 82728; 82803; 82947; 83550; 83605; 83735; 83880; 84100; 84132; 84484; 85018; 85025; 85027; 87070; 87075; 87077; 87186; 87205; 88305; 88307; 93005; 94002; 94640; 94762; 97161-GP; 97530-GP; 97535-GP; A9270-GY; C9113; J0171; J0330; J0610; J0690; J0694; J1100; J1170; J1642; J1644; J1720; J1815-GY; J1940; J2020; J2060; J2185; J2250; J2370; J2405; J2543; J2704; J2710; J2765; J2795; J3010; J3410; J3420; J3475; J3480; J3490; J7030; J7040; J7050; J7060; J7120; J7121; J7620-GY; P9047; Q9967